=== PATIENT | female | born 1990 | race Caucasian/White ===

== ENCOUNTER 2020-03-31 10:14 | Emergency (ER) | payer OTHER, SELFPAY ==
[2020-03-31 12:07] VITALS: BP 116/67; PULSE 76; RESP 18; TEMP 36.6; O2SAT 99; BMI 23.0
--- NOTE | 2020-03-31 13:59 | ED_ITS ---
HPI - General Adult General Chief complaint: Skin/Abscess/Foreign Body Stated complaint: rash History of Present Illness HPI narrative: Patient presents to ED for itchy rash on back and arms for 2 weeks. Patient states no relief with [id number] eucerin cream and bacitracin ointment. patient has pmh of eczema. Patient denies any swelling of lips, shortness of breath, swelling of tongue, burning sensation, fever, or chills. Patient denies having bedbugs. Patient states no one in her home have similar symptoms. Patient also states her kids sleep in the bed and had no symptoms/rash. Related Data Previous Rx's Medication Instructions Recorded diphenhydramine HCl [Benadryl] 25 mg PO TID PRN #30 cap 03/31/20 famotidine [Pepcid] 20 mg PO BID #20 tab 03/31/20 hydrocortisone 1 appl TOPICAL BID PRN 14 Days #30 03/31/20 g prednisone 40 mg PO DAILY #10 tab 03/31/20 Allergies Allergy/AdvReac Type Severity Reaction Status Date / Time SEAFOOD Allergy Mild ANGIOEDEMA Uncoded 03/31/20 12:06 shellfish Allergy Unknown swelling Uncoded 03/31/20 12:06 Review of Systems Review of Systems: Yes all other systems are reviewed and are negative Constitutional: Constitutional: Reports as per HPI and Reports no additional constitutional complaints Eyes: Eyes: Reports as per HPI and Reports no additional eye complaints ENT: Reports system reviewed and no additional complaints, except as documented and Reports as per HPI Cardiovascular: Cardiovascular: Reports as per HPI and Reports no additional cardiovascular complaints Respiratory: Respiratory: Reports as per HPI and Reports no additional respiratory complaints Gastrointestinal: Gastrointestinal: Reports as per HPI and Reports no additional gastrointestinal complaints Genitourinary: Genitourinary: Reports no additional female genitourinary complaints and Reports as per HPI Musculoskeletal: Musculoskeletal: Reports no additional musculoskeletal c omplaints and Reports as per HPI Comments: Itchy rash on back, and arms Neurologic: Reports system reviewed and no additional complaints, except as documented and Reports as per HPI Psychiatric: Psychiatric: Reports no additional psychiatric complaints and Reports as per HPI [facility] Past Medical History Medical History (Updated 03/31/20 @ 14:18 by JOSLYN Aj) Patient denies medical problems Social History Social History Smoked in Last 30 Days: No Use of substances other than those prescribed or required for medical reasons: No Advance Directives: No Advance Directives Information Provided: No Physical Exam Vital Signs: Vital Signs: Last Vital Signs Temp 97.8 F 03/31/20 12:07 Pulse 76 03/31/20 12:07 Resp 18 03/31/20 12:07 BP 116/67 03/31/20 12:07 Pulse Ox 99 03/31/20 12:07 Body Mass Index 23.0 Const: General: cooperative, healthy appearing, comfortable, no acute distress, well developed, alert, awake and Physically active Orientation/consciousness: patient oriented x3 HENMT: Other: Lips, tongue, and uvula are not swollen. Patient speaking in full sentences and not using accessory muscles. Uvula is midline Head: Yes normal to inspection, Yes No palpable skull fracture present, Yes normocephalic, No atraumatic, No abrasion, No Sage's sign, No contusion, No cranial bruits, No hematoma, No laceration, No occipital foramen tenderness, No palpable skull fracture, No raccoon eyes, No scalp tenderness, No Temporal artery tenderness present and No periorbital ecchymosis Eyes: General: appearance normal, both eyes and all related structures Neck: Neck: Yes normal visual inspection, Yes full ROM, Yes no lymphadenopathy, Yes no meningeal signs, Yes trachea midline, Yes supple and No tender Chest: Chest palpation & inspection: normal inspection of the chest and normal palpation of entire chest wall Resp: Effort & Inspection: normal respiratory effort and able to speak in complete sentences Auscultation: clear to auscultation bilaterally Cardio: Jugular venous distension: no JVD Heart sounds: S1 normal heart sound present and S2 normal heart sound present GI: Inspection: Yes normal to inspection and No abdominal wall ecchymosis Palpation (GI): Soft to palpation, not firm, nontender, no guarding and not rigid : General: Yes CVA tenderness and Yes no CVA tenderness Back/Spine/Pelvis: Back: no CVA tenderness and CVA tenderness Skin: Other: Back/bilateral arms positive for red dermatitis type rash with excoriation. Negative for any papules. Negative for vesicles or blisters to indicate shingles. Negative for warmth to indicate cellulitis. Negative for little bites on hand enhance to indicate scabies. Neuro: General: patient oriented x3, no meningeal signs and CN's II-XI intact bilaterally Cranial nerves: Yes CN's II-XII intact bilaterally Extrem: General: Yes normal to inspection and Yes full ROM Psych: Appearance: grossly normal, well kempt and not disheveled Course Course Course Narrative: History physical exam indicate dermatitis/eczema Reevaluation(s) Reevaluation #1: Patient will be discharged with Benadryl, Pepcid, prednisone, and hydrocortisone cream. Patient informed to use Benadryl, Pepcid, prednisone 1st and then use hydrocortisone cream. Patient informed not to use hydrocortisone on face. Time: 14:13 Medical Decision Making MDM Narrative Medical decision making narrative: Eczema/dermatitis Discharge Plan Discharge Clinical Impression: Dermatitis, Eczema Patient Disposition: Home, Self-Care Instructions: Eczema (ED), Dermatitis (ED) Additional Instructions: Return to the ED immediately for swelling of lips, swelling of tongue, shortness of breath, chest pain, fever, chills, worsening rash, or any other concerning symptoms. Prescriptions: New prednisone 20 mg tablet 40 mg PO DAILY Qty: 10 RF: 0 famotidine [Pepcid] 20 mg tablet 20 mg PO BID Qty: 20 RF: 0 diphenhydramine HCl [Benadryl] 25 mg capsule 25 mg PO TID PRN (Reason: itching) Qty: 30 RF: 0 hydrocortisone 2.5 % cream 1 appl topical BID PRN (Reason: itching) 14 Days Qty: 30 RF: 0 Referrals: Matteo Jurado MD [Physician] - 2 days (Rash. History and physical exam indicate eczema. needs follow-up.) Interventions: ED Discharge Assessment Last Done: 03/31/20 14:31 Discharge Date/Time: 03/31/20 14:31 Print Language: Indonesian
== END 2020-03-31 14:31 | disposition home or self-care (01) ==
PROVIDERS: Emergency Provider Emergency Medicine; PCP Internal Medicine
DX: L30.9 Dermatitis, unspecified (principal); R21 Rash and other nonspecific skin eruption
CPT/HCPCS: 99283

== ENCOUNTER 2020-11-23 16:12 | Outpatient (REF) | payer OTHER, SELFPAY ==
[2020-11-23 16:26] LABS: MANUAL DIFF FLAG NO
[2020-11-23 16:47] LABS: Basophils Percent Auto 0.4 % (0-2); Eosinophils Absolute Auto 0.2 X10*3/uL (0.0-0.4); Eosinophils Percent Auto 1.9 % (0-4); Hematocrit 36.3 % (37-47); Hemoglobin 12.8 g/dl (12.0-16.0); Imm Gran Abs Auto 0.04 X10*3/uL (0.00-0.03); Imm Gran Pct Auto 0.4 % (0.0-0.4); Lymphocytes Absolute Auto 1.4 X10*3/uL (1.2-4.9); Lymphocytes Percent Auto 14.6 % (20-40); Mean Corpuscular HGB Conc 35.3 g/dl (31.0-35.0); Mean Corpuscular Hemoglobin 31.9 pg (27.0-33.0); Mean Corpuscular Volume 90.5 fL (80-98); Mean Platelet Volume 10.1 fL (9.4-12.3); Monocytes Absolute Auto 0.5 X10*3/uL (0.1-1.2); Monocytes Percent Auto 5.1 % (2-11); Neutrophils Absolute Auto 7.4 X10*3/uL (2.0-8.3); Neutrophils Percent Auto 77.6 % (45-73); Platelet Count 243 X10*3/uL (160-400); Red Blood Count 4.01 X10*6/uL (4.20-5.50); Red Cell Distribution Width 11.7 % (11.0-16.0); White Blood Count 9.5 X10*3/uL (4.8-10.8)
[2020-11-23 17:04] LABS: Alanine Aminotransferase 21 U/L (0-31); Albumin Level 4.5 g/dL (3.5-5.0); Alkaline Phosphatase 67 U/L (39-117); Anion Gap 12 (12-20); Aspartate Amino Transferase 20 U/L (5-31); Bilirubin Total 0.4 mg/dL (0.0-1.0); Blood Urea Nitrogen 12 mg/dL (9-16); Calcium 9.6 mg/dL (8.4-10.2); Carbon Dioxide 28 mmol/L (22-29); Chloride 104 mmol/L (96-108); Cholesterol 170 mg/dL; Estimated Glomerular Filt Rate > 60; Glucose Random 84 mg/dL (60-115); HDL Cholesterol 48 mg/dL; LDL Cholesterol Calculated 102 mg/dl; Potassium 4.2 mmol/L (3.3-5.1); Sodium 140 mmol/L (135-145); Total Protein 7.6 g/dL (6.5-8.0); Triglycerides 103 mg/dL
[2020-11-23 17:25] LABS: Thyroid Stimulating Hormone 1.22 uIU/mL (0.32-4.0)
== END 2020-11-23 16:13 | disposition home or self-care (01) ==
LOC: HO.LAB 16:12
PROVIDERS: PCP Internal Medicine; Visit Provider Internal Medicine
DX: Z00.00 Encounter for general adult medical examination without abnormal findings (principal); G56.01 Carpal tunnel syndrome, right upper limb; Z11.3 Encounter for screening for infections with a predominantly sexual mode of transmission; Z12.4 Encounter for screening for malignant neoplasm of cervix
CPT/HCPCS: 36415; 80053; 80061; 84443; 85025

== ENCOUNTER 2021-11-23 13:31 | Outpatient (REF) | payer OTHER, SELFPAY ==
[2021-11-23 14:19] LABS: MANUAL DIFF FLAG NO
[2021-11-23 15:22] LABS: Basophils Absolute Auto 0.1 X10*3/uL (0.0-0.2); Basophils Percent Auto 0.7 % (0-2); Eosinophils Absolute Auto 0.2 X10*3/uL (0.0-0.4); Eosinophils Percent Auto 1.8 % (0-4); Hematocrit 37.7 % (37.0-47.0); Hemoglobin 12.9 g/dl (12.0-16.0); Imm Gran Abs Auto 0.05 X10*3/uL (0.00-0.03); Imm Gran Pct Auto 0.6 % (0.0-0.4); Lymphocytes Absolute Auto 1.4 X10*3/uL (1.2-4.9); Lymphocytes Percent Auto 16.5 % (20-40); Mean Corpuscular HGB Conc 34.2 g/dl (31.0-35.0); Mean Corpuscular Hemoglobin 31.1 pg (27.0-33.0); Mean Corpuscular Volume 90.8 fL (80.0-98.0); Mean Platelet Volume 10.7 fL (9.4-12.3); Monocytes Absolute Auto 0.4 X10*3/uL (0.1-1.2); Neutrophils Absolute Auto 6.6 x10*3/uL (2.0-8.3); Neutrophils Percent Auto 76.4 % (45-73); Platelet Count 278 X10*3/uL (160-400); Red Blood Count 4.15 X10*6/uL (4.20-5.50); White Blood Count 8.7 X10*3/uL (4.8-10.8)
[2021-11-23 15:37] LABS: Alanine Aminotransferase 21 U/L (0-31); Albumin Level 4.5 g/dL (3.5-5.0); Alkaline Phosphatase 59 U/L (39-117); Anion Gap 16 (12-20); Aspartate Amino Transferase 18 U/L (5-31); Bilirubin Total 0.7 mg/dL (0.0-1.0); Blood Urea Nitrogen 13 mg/dL (9-16); Calcium 9.4 mg/dL (8.4-10.2); Carbon Dioxide 25 mmol/L (22-29); Chloride 103 mmol/L (96-108); Estimated Glomerular Filt Rate > 60; Glucose Random 112 mg/dL (60-115); Potassium 4.1 mmol/L (3.3-5.1); Sodium 140 mmol/L (135-145); Total Protein 7.7 g/dL (6.5-8.0)
== END 2021-11-23 13:32 | disposition home or self-care (01) ==
LOC: HO.LAB 13:31
PROVIDERS: PCP Internal Medicine; Visit Provider Internal Medicine
DX: Z00.00 Encounter for general adult medical examination without abnormal findings (principal); I83.813 Varicose veins of bilateral lower extremities with pain; Z13.31 Encounter for screening for depression
CPT/HCPCS: 36415; 80053; 85025

== ENCOUNTER → 2022-02-01 11:21 | Outpatient (BNVA) | payer OTHER, SELFPAY | PROVIDERS: PCP Internal Medicine; Visit Provider Surgery Vascular Surgery | DX: I83.11 Varicose veins of right lower extremity with inflammation (principal) | CPT/HCPCS: 99202 ==

== ENCOUNTER 2022-02-09 10:18 | Outpatient (REF) | payer OTHER, SELFPAY ==
--- NOTE | ~2022-02-09 | US_ITS ---
EXAMINATION: US LOWER EXTREMITY VENOUS (REFLUX EXAM), BILATERAL CLINICAL INDICATION: Chronic venous insufficiency with lower extremity varicose veins COMPARISON: None. TECHNIQUE: Color flow triplex imaging and compression Doppler was performed to evaluate both the deep and the superficial systems bilaterally. To evaluate the superficial system, the examination was performed in the upright position. Color-flow Doppler ultrasound and compression ultrasound were utilized. In addition, maneuvers were utilized to demonstrate reflux. FINDINGS: 1. DEEP VENOUS ULTRASOUND OF THE RIGHT LOWER EXTREMITY: Common Femoral Vein: Compressible, normal respiratory variation and augmented flow. Femoral Vein: Compressible, normal color flow and augmentation. Popliteal Vein: Compressible, normal augmentation. Deep Reflux: There is no evidence of reflux in the deep system in either the common femoral vein or the popliteal vein. There is no evidence of a Brito's cyst. 2. SUPERFICIAL ULTRASOUND WITH DOPPLER OF RIGHT LOWER EXTREMITY: GREAT SAPHENOUS VEIN: Saphenofemoral Junction: 0.5 cm; Reflux: 0 ms Proximal Thigh: 0.3 cm; Reflux: 0 ms Mid Thigh: 0.3 cm; Reflux: 0 ms Above Knee: 0.2 cm; Reflux: 0 ms At Knee: 0.2 cm; Reflux: 0 ms Below Knee: 0.2 cm; Reflux: 0 ms Mid Calf: 0.1 cm; Reflux: 0 ms Ankle: 0.2 cm; Reflux: 0 ms DUPLICATED MEDIAL GREAT SAPHENOUS VEIN: Diameter: 0.2 cm Reflux: None DUPLICATED LATERAL GREAT SAPHENOUS VEIN: Diameter: None Imaged Reflux: NA SMALL SAPHENOUS VEIN: Proximal: 0.3 cm; Reflux: 0 ms Distal: 0.2 cm; Reflux: 0 ms VEIN OF GIACOMINI: None Imaged. PERFORATORS: Location: None Imaged Size: NA Reflux: NA VARICOSITIES: Location: None significant Size: NA Reflux: NA 3. DEEP VENOUS ULTRASOUND OF THE LEFT LOWER EXTREMITY: Common Femoral Vein: Compressible, normal respiratory variation and augmented flow. Femoral Vein: Compressible, normal color flow and augmentation. Popliteal Vein: Compressible, normal augmentation. Deep Reflux: There is no evidence of reflux in the deep system in either the common femoral vein or the popliteal vein. There is no evidence of a Brito's cyst. 4. SUPERFICIAL ULTRASOUND WITH DOPPLER OF LEFT LOWER EXTREMITY: GREAT SAPHENOUS VEIN: Saphenofemoral Junction: 0.7 cm; Reflux: 0 ms Proximal Thigh: 0.4 cm; Reflux: 0 ms Mid Thigh: 0.2 cm; Reflux: 0 ms Above Knee: 0.2 cm; Reflux: 0 ms At Knee: 0.3 cm; Reflux: 0 ms Below Knee: 0.2 cm; Reflux: 0 ms Mid Calf: 0.2 cm; Reflux: 0 ms Ankle: 0.2 cm; Reflux: 0 ms DUPLICATED MEDIAL GREAT SAPHENOUS VEIN: Diameter: None Imaged Reflux: NA DUPLICATED LATERAL GREAT SAPHENOUS VEIN: Diameter: None Imaged Reflux: NA SMALL SAPHENOUS VEIN: Proximal: 0.2 cm; Reflux: 0 ms Distal: 0.1 cm; Reflux: 0 ms VEIN OF GIACOMINI: None Imaged. PERFORATORS: Location: None Imaged Size: NA Reflux: NA VARICOSITIES: Location: None significant Size: NA Reflux: NA US/US venous duplex LE BI IMPRESSION: Right: No significant venous insufficiency or reflux in the great saphenous vein or small saphenous vein Left: No significant venous insufficiency or reflux in the great saphenous vein or small saphenous vein
== END 2022-02-09 10:19 | disposition home or self-care (01) ==
LOC: HO.US 10:18
PROVIDERS: PCP Internal Medicine; Visit Provider Surgery Vascular Surgery
DX: I83.893 Varicose veins of bilateral lower extremities with other complications (principal)
CPT/HCPCS: 93970

== ENCOUNTER → 2022-03-22 11:13 | Outpatient (BNVA) | payer OTHER, SELFPAY | PROVIDERS: PCP Internal Medicine; Visit Provider Surgery Vascular Surgery | DX: I83.11 Varicose veins of right lower extremity with inflammation (principal) | CPT/HCPCS: 99212 ==

== ENCOUNTER 2022-08-17 10:31 | Outpatient (AMB) | payer OTHER, SELFPAY ==
--- NOTE | 2022-08-17 10:56 | MHC.OFFWIV ---
Intake Vital Signs 08/17/22 10:57 Height 5 ft 3 in BP 118/74 Blood Pressure Location Rt brachial Position Sitting Pulse 87 Pulse Source Pulse Oximeter Temp 97.8 F Temp Source Temporal Artery Scan Pulse Oximetry (%) 98 Intake Visit Reasons: EP fall, LT foot injury (lobby) Intake Note: pt is here for lt foot pain, fell down stairs and hit foot Patient Tobacco Use Status: Never used Tobacco Allergies SEAFOOD Allergy (Mild, Uncoded 08/17/22 10:57) ANGIOEDEMA shellfish Allergy (Unknown, Uncoded 08/17/22 10:57) swelling Do you need a note to return to daycare/school/sports/work: Yes HPI HPI Comments History of Present Illness Details 1100 This is a 31-year-old female presenting to the clinic for a sick visit, patient reporting left foot/toe pain status post trip and fall few days ago down the stairs, patient reports when she fell she did not hit her head, no loss of consciousness, not on blood thinners. She reports that her left foot/toes hit the wall in since then has been having pain worse with weight-bearing, ambulation better at rest. Denies numbness, tingling, headache, vision changes, dizziness, weakness, altered mental status, lethargy, seizure-like activity, chest pain, shortness of breath. No other injury sustained in fall. Physical exam significant for 2+ dorsalis pedis, anterior tibialis, posterior tibialis pulses equal bilateral. No foot drop. Normal sensation distally. There does appear to be some swelling to the left 2nd -4th toes with full range of motion pain-free. Normal right foot. Normal capillary refill less than 2 seconds equal bilateral. Patient ambulatory. Likely sprain versus strain will rule out fracture dislocation. No signs of threatened lumbar neurovascular compromise. Plan at this time x-ray, discharged home with orthopedic follow-up. Will give her a walking shoe. Educated patient on diagnosis and treatment plan, answered all question, patient verbalizes understanding. At this time patient will be discharged home, advised to return with new or worsening symptoms. Educated on worrisome signs and symptoms and when to return. At this time I feel comfortable discharge home. [facility] Medical History Patient denies medical problems Family History Mother Hypertension Social History Alcohol intake: never Patient Tobacco Use Status: Never used Tobacco Review of Systems Const Details: Constitutional : No Weight loss, No Fever, No Chills, No Fatigue, No Malaise ENT/Mouth : No sore throat, No Rhinorrhea Eyes: No Eye Pain, No Swelling, No Redness Cardiovascular : No Chest Pain, No SOB, No Dyspnea on Exertion, No Orthopnea, No Edema, No Palpitations Respiratory : No Cough, No Sputum, No Wheezing Gastrointestinal : No Nausea, No Vomiting, No Diarrhea, No Constipation, No abdominal Pain, No Hematochezia, No Melena Genitourinary : No Dysuria, No Urinary Frequency, No Hematuria, Musculoskeletal : No joint pain, No Myalgias, + Joint Swelling Skin : No Skin Lesions, No rash Neuro : No Weakness, No Numbness, No Dizziness, No Headache Psych : No Anxiety/Panic, No Depression All other systems reviewed and are negative All systems reviewed & are unremarkable except as noted in HPI and below Physical Exam Vital Signs: Last Vital Signs Temp 97.8 F 08/17/22 10:57 Pulse 87 08/17/22 10:57 BP 118/74 08/17/22 10:57 Pulse Ox 98 08/17/22 10:57 vss Appearance: Alert.? Oriented X3.? No acute distress.? Head: Normocephalic, atraumatic, no step-offs or deformities Eyes: Pupils equal, round and reactive to light.? CVS: Normal heart rate and rhythm.? Pulses normal.? Respiratory: No respiratory distress.? Breath sounds normal.? Abdomen: Soft and nontender.? Skin: Skin warm and dry.? Normal skin color.? Normal skin turgor.? Extremities: No lower extremity edema.? No calf ttp. 5/5 strength to bilateral upper and lower extremities. 2+ dorsalis pedis, anterior tibialis, posterior tibialis pulses equal bilateral. No foot drop. Normal sensation distally. There does appear to be some swelling to the left 2nd -4th toes with full range of motion pain-free. Normal right foot. Normal capillary refill less than 2 seconds equal bilateral. Patient ambulatory. Neuro: Oriented X 3.? No motor deficit.? No sensory deficit. CN 2-12 intact Assessment & Plan Assessment & Plan (1) Toe pain, left: Code(s): M79.675 - Pain in left toe(s) (2) Foot pain: Code(s): M79.673 - Pain in unspecified foot (3) Fall: Code(s): W19.XXXA - Unspecified fall, initial encounter Plan Take your medications as prescribed. If you were prescribed antibiotics today, it is important that you take your medication to their entirety, do not skip any doses, do not finish them early. Follow-up with your primary care provider this week. Return to the emergency department with new or worsening symptoms. Such as fevers, chills, chest pain, shortness of breath, nausea, vomiting, dizziness, headache, vision changes, lethargy In case of emergency call 911 Orders: Orders XR foot LT 2V Today M79.672 - Pain in left foot Referrals Orthopedics Referral M79.675 - Pain in left toe(s) Coding Level of Care Code Est Pt Level 3 (96521) Diagnoses Toe pain, left M79.675 Foot pain M79.673 Fall W19.XXXA
[2022-08-17 10:57] VITALS: BP 118/74; PULSE 87; TEMP 36.6; O2SAT 98
== END 2022-08-17 11:54 | disposition home or self-care (01) ==
PROVIDERS: PCP Internal Medicine; Visit Provider Physician Assistant
DX: M79.675 Pain in left toe(s) (principal); M79.673 Pain in unspecified foot; W19.XXXA Unspecified fall, initial encounter
CPT/HCPCS: 99213

== ENCOUNTER 2022-08-17 11:14 | Outpatient (REF) | payer OTHER, SELFPAY ==
--- NOTE | ~2022-08-17 | XR_ITS ---
EXAMINATION: XR FOOT, LEFT CLINICAL INFORMATION: Left foot pain COMPARISON: None available. TECHNIQUE: AP, lateral, and oblique views of the left foot. FINDINGS: Minimally displaced oblique fractures involving medial and lateral cortices of the fourth proximal phalanx are seen. No intra-articular extension. Alignment and articulations are maintained. Mild calcaneal spurring. XR/XR foot LT min 3V IMPRESSION: Fractured fourth toe
== END 2022-08-17 11:15 | disposition home or self-care (01) ==
LOC: HO.HMGCX 11:14
PROVIDERS: PCP Internal Medicine; Visit Provider Physician Assistant
DX: M79.672 Pain in left foot (principal)
CPT/HCPCS: 73630

== ENCOUNTER 2022-11-23 15:02 | Outpatient (REF) | payer OTHER, SELFPAY ==
[2022-11-23 18:01] LABS: CT PCR NOT DETECTED (Not Detect.); NG PCR NOT DETECTED (Not Detect.)
[2022-11-25 07:40] LABS: Syphilis Screen Nonreactive (Nonreactive)
[2022-11-25 07:45] LABS: HBS Num1 42.35 mIU/mL (0-7.99); HBc Num1 0.12 S/CO (0.00-0.79); HBsAGNum1 0.75 S/CO (0.00-0.99); HIV AB/AG Nonreactive (Nonreactive); Hepatitis A Antibody IgM 0.22 Index (0-0.79); Hepatitis B Core Antibody Nonreactive (Nonreactive); Hepatitis B Surface Antigen Negative (Negative); ~HepC Num1 0.14 S/CO (0.00-0.79); ~Hepatitis A Antibody IgM Nonreactive (Nonreactive); ~Hepatitis B Surface Antibody REACTIVE (Nonreactive); ~Hepatitis C Antibody Nonreactive (Nonreactive)
== END 2022-11-23 15:03 | disposition home or self-care (01) ==
LOC: HO.LAB 15:02
PROVIDERS: PCP Internal Medicine; Visit Provider Internal Medicine
DX: Z00.00 Encounter for general adult medical examination without abnormal findings (principal); F32.9 Major depressive disorder, single episode, unspecified; F41.0 Panic disorder [episodic paroxysmal anxiety]; Z11.3 Encounter for screening for infections with a predominantly sexual mode of transmission
CPT/HCPCS: 0353U; 86704; 86706; 86709; 86780; 86803; 87340; 87389

== ENCOUNTER 2023-01-26 12:49 | Outpatient (AMB) | payer OTHER, SELFPAY ==
[2023-01-26 12:57] VITALS: BP 100/62; BMI 31.9
--- NOTE | 2023-01-26 12:57 | A.OFFVIS_ITS ---
Intake Vital Signs 01/26/23 12:57 Height 5 ft 3 in Weight 180 lb BMI 31.9 BP 100/62 Intake Visit Reasons: tubal consult Bean Snapper Required: No Allergies SEAFOOD Allergy (Mild, Uncoded 01/26/23 13:00) ANGIOEDEMA shellfish Allergy (Unknown, Uncoded 01/26/23 13:00) swelling Post menopausal: No HPI HPI Comments History of Present Illness Details Presenting to discuss different options of control including tubal sterilization. The patient has ParaGard IUD inserted few years ago [facility] Medical History Patient denies medical problems Family History Mother Hypertension Breast cancer Maternal Grandmother Breast cancer Social History Alcohol intake: never Patient Tobacco Use Status: Never used Tobacco Female Reproductive History Menstrual Duration of menses: other Total pregnancies: 3 Full term: 3 Number of Living Children: 3 Review of Systems Const All systems reviewed & are unremarkable except as noted in HPI and below Reports as per HPI and Reports no additional complaints GI Reports no additional complaints Reports no additional complaints Physical Exam Vital Signs: Last Vital Signs BP 100/62 01/26/23 12:57 BMI result Body Mass Index 31.9 Assessment & Plan Assessment & Plan (1) Family planning: Code(s): Z30.09 - Encounter for other general counseling and advice on contraception Plan: Discussed with the patient the different options of control including control pills/Nuvaring, DMPA, different types of IUD ?s ( Cu vs Progesterone IUD). All the pros, cons, risks and benefits of each were discussed with the patient. The patient decided to stay with Paraguard IUD, I was inserted few years ago, all questions answered, the patient verbalized understanding Coding Level of Care Code New Pt Level 3 (09658) Diagnoses Family planning Z30.09
== END 2023-01-26 13:23 | disposition home or self-care (01) ==
LOC: HO.HWS 12:49
PROVIDERS: PCP Internal Medicine; Visit Provider Obstetrics & Gynecology
DX: Z30.09 Encounter for other general counseling and advice on contraception (principal)
CPT/HCPCS: 99203

== ENCOUNTER → 2023-01-26 12:49 | Outpatient (BNVA) | payer OTHER, SELFPAY | PROVIDERS: PCP Internal Medicine; Visit Provider Obstetrics & Gynecology | DX: Z30.09 Encounter for other general counseling and advice on contraception (principal) | CPT/HCPCS: 99202 ==

== ENCOUNTER 2023-03-29 08:44 | Outpatient (REF) | payer OTHER, SELFPAY ==
[2023-04-01 03:59] LABS: HPV mRNA E6/E7 rflx Not Detected (Not Detected)
== END 2023-03-29 08:45 | disposition home or self-care (01) ==
LOC: HO.LNP 08:44
PROVIDERS: PCP Internal Medicine; Visit Provider Obstetrics & Gynecology
DX: Z01.419 Encounter for gynecological examination (general) (routine) without abnormal findings (principal); T83.32XA Displacement of intrauterine contraceptive device, initial encounter; Z11.3 Encounter for screening for infections with a predominantly sexual mode of transmission; Z32.02 Encounter for pregnancy test, result negative
CPT/HCPCS: 81025; 87624; 88142; 99395

== ENCOUNTER 2023-03-29 08:44 | Outpatient (AMB) | payer OTHER, SELFPAY ==
--- NOTE | 2023-03-29 08:47 | MHC.OFFVIS ---
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 The patient states that she has an IUD inserted around 6 years ago, and is requesting STD screen Last Pap/HPV was many years ago [facility] Medical History Patient denies medical problems Family History Mother Hypertension Breast cancer Maternal Grandmother Breast cancer Social History Alcohol intake: never Patient Tobacco Use Status: Never used Tobacco Female Reproductive History Menstrual Date of last menstrual period: 03/22/23 control method: progestin IUCD Total pregnancies: 3 Full term: 3 Number of Living Children: 3 Review of Systems Const All systems reviewed & are unremarkable except as noted in HPI and below Card Reports as per HPI Resp Reports as per HPI GI Reports as per HPI and Reports no additional complaints Reports as per HPI Physical Exam Vital Signs: Last Vital Signs BP 114/70 03/29/23 08:48 BMI result Body Mass Index 31.6 Const General: cooperative, healthy appearing and comfortable Chest Chest palpation & inspection: normal inspection of the chest and normal palpation of entire chest wall Breast/axilla inspection: normal inspection of the breasts and normal inspection of the axillae Breast/axilla palpation: normal palpation of the breasts, normal palpation of the axillae and no axillary lymphadenopathy Resp Effort & Inspection: normal respiratory effort Auscultation: clear to auscultation bilaterally Percussion: percussion normal Cardio Palpation: normal PMI Rate: regular rate Rhythm: regular rhythm Heart sounds: no murmurs and no rubs Peripheral pulses: Peripheral pulses 2+ throughout GI Inspection: Yes normal to inspection Palpation (GI): Soft to palpation, nontender, no guarding, not rigid and No hepatosplenomegaly present Percussion: Yes normal to percussion Auscultation: normal bowel sounds Rectal Exam - Female: deferred General: Yes bladder normal to palpation External Female Exam: No lesion Speculum Exam - Vagina: normal appearance of the vagina, normal palpation, normal vaginal discharge and not erythematous Speculum Exam - Cervix: normal appearance of the cervix, normal palpation and Other cervical findings present (No IUD string visualized) Bimanual exam- vagina & uterus: normal bimanual exam, normal palpation, uterine size normal, bladder normal to palpation, consistency normal and normal palpation Bimanual Exam- Adnexa, other: normal adnexae, no masses and no tenderness Assessment & Plan Assessment & Plan (1) Well woman exam: Code(s): Z01.419 - Encounter for gynecological examination (general) (routine) without abnormal findings Plan: Cotesting done. Counseled the patient about the recommended dietary allowance of 1000 mg of Calcium & 600 IU of vitamin D. The patient was instructed to perform monthly self-breast exams and to schedule an annual exam in a year; All questions answered and the patient verbalized understanding. Instructed the patient to schedule annual exam in a year (2) Screen for STD (sexually transmitted disease): Code(s): Z11.3 - Encounter for screening for infections with a predominantly sexual mode of transmission Plan: STD screening tests done includes: BV panel for trichomonas, GC/CT will send patient for serology std screening for HIV, RPR, Hep b s Ag, HepC Ab. Instructions given the patient to schedule a follow-up appointment for repeat serology screen in 6 months for possible false negatives. (3) IUD strings lost: Code(s): T83.32XA - Displacement of intrauterine contraceptive device, initial encounter Plan: UPT done in the office was negative. Will order pelvic ultrasound. Instructions given the patient to schedule a 2 week ultrasound follow-up appointment Coding Level of Care Code Est Pt Prev Care 18-39y([id number]) Diagnoses Well woman exam Z01.419 Screen for STD (sexually transmitted disease) Z11.3 IUD strings lost T83.32XA
[2023-03-29 08:48] VITALS: BP 114/70; BMI 31.6
== END 2023-03-29 09:20 | disposition home or self-care (01) ==
LOC: HO.HWS 08:44
PROVIDERS: PCP Internal Medicine; Visit Provider Obstetrics & Gynecology
DX: Z01.419 Encounter for gynecological examination (general) (routine) without abnormal findings (principal); Z11.3 Encounter for screening for infections with a predominantly sexual mode of transmission; T83.32XA Displacement of intrauterine contraceptive device, initial encounter; Z32.02 Encounter for pregnancy test, result negative
CPT/HCPCS: 99395

== ENCOUNTER 2023-03-29 09:26 | Outpatient (REF) | payer OTHER, SELFPAY ==
[2023-03-29 10:58] LABS: Syphilis Screen Nonreactive (Nonreactive)
[2023-03-29 10:59] LABS: HBsAGNum1 0.54 S/CO (0.00-0.99); HIV AB/AG Nonreactive (Nonreactive); HIV Num 1 0.08 S/CO (0.00-0.99); Hepatitis B Surface Antigen Negative (Negative); ~HepC Num1 0.37 S/CO (0.00-0.79); ~Hepatitis C Antibody Nonreactive (Nonreactive)
[2023-03-29 12:59] LABS: CT PCR NOT DETECTED (Not Detect.); NG PCR NOT DETECTED (Not Detect.)
[2023-03-30 11:34] LABS: BV Int Neg Control Negative (Negative); BV Int Pos Control Positive (Positive)
== END 2023-03-29 09:27 | disposition home or self-care (01) ==
LOC: HO.LAB 09:26
PROVIDERS: PCP Internal Medicine; Visit Provider Obstetrics & Gynecology
DX: Z01.419 Encounter for gynecological examination (general) (routine) without abnormal findings (principal); Z20.2 Contact with and (suspected) exposure to infections with a predominantly sexual mode of transmission
CPT/HCPCS: 0353U; 36415; 86780; 86803; 87340; 87389; 87480; 87510; 87660

== ENCOUNTER 2023-04-11 14:24 | Outpatient (REF) | payer OTHER, SELFPAY ==
[2023-04-11 16:48] LABS: Alanine Aminotransferase 21 U/L (0-31); Albumin Level 4.2 g/dL (3.5-5.0); Alkaline Phosphatase 53 U/L (39-117); Anion Gap 10 (12-20); Aspartate Amino Transferase 18 U/L (5-31); Bilirubin Total 0.5 mg/dL (0.0-1.0); Blood Urea Nitrogen 14 mg/dL (9-16); Calcium 9.1 mg/dL (8.4-10.2); Carbon Dioxide 28 mmol/L (22-29); Chloride 106 mmol/L (96-108); Estimated Glomerular Filt Rate > 60; Glucose Random 82 mg/dL (60-115); Sodium 140 mmol/L (135-145); Total Protein 7.6 g/dL (6.5-8.0)
== END 2023-04-11 14:25 | disposition home or self-care (01) ==
LOC: HO.LAB 14:24
PROVIDERS: PCP Internal Medicine; Visit Provider Internal Medicine
DX: B35.3 Tinea pedis (principal); L03.119 Cellulitis of unspecified part of limb
CPT/HCPCS: 36415; 80053

== ENCOUNTER 2023-04-17 10:58 | Outpatient (REF) | payer OTHER, SELFPAY ==
--- NOTE | ~2023-04-17 | US_ITS ---
EXAMINATION: US PELVIS CLINICAL INFORMATION: Displacement of contraceptive device COMPARISON: None available. TECHNIQUE: Ultrasound of the pelvis is performed using both transabdominal and transvaginal transducers along with Doppler. Transvaginal imaging is performed due to inadequate visualization transabdominally. FINDINGS: Uterus: The uterus is anteverted and measures 10.0 x 5.0 x 5.5 cm in sagittal times AP times transverse dimension. The double wall endometrial thickness is 0.3 cm. The uterus is smooth in contour and has normal myometrial echogenicity. No visible fibroid. There is an IUD is positioned low in the lower uterine segment. Adnexa: Both ovaries are visualized. There is normal color flow to the adnexa. There is no ovarian torsion. There is no pelvic ascites or fluid collection. Right ovary measures 2.9 x 1.5 x 2.3 cm and volume 5.1 mL. It appears unremarkable. Left ovary measures 3.6 x 1.7 x 2.5 cm and volume 7.9 mL. US/US pelvic and transvaginal IMPRESSION: 1. Low-lying IUD in the lower uterine segment. 2. The ovaries are unremarkable. 3. There is no free fluid in the cul-de-sac.
== END 2023-04-17 10:59 | disposition home or self-care (01) ==
LOC: HO.US 10:58
PROVIDERS: PCP Internal Medicine; Visit Provider Obstetrics & Gynecology
DX: T83.32XA Displacement of intrauterine contraceptive device, initial encounter (principal)
CPT/HCPCS: 76830; 76856

== ENCOUNTER 2023-04-27 08:02 | Outpatient (AMB) | payer OTHER, SELFPAY ==
--- NOTE | 2023-04-27 08:26 | A.OFFVIS_ITS ---
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 The patient had positive BV is on metronidazole Pelvic Ultrasound showed the following: IMPRESSION: 1. Low-lying IUD in the lower uterine s egment. 2. The ovaries are unremarkable. 3. There is no free fluid in the cul-de -sac. COUNTS INCLUDE 234 BEDS AT THE [facility] Medical History Patient denies medical problems Family History Mother Hypertension Breast cancer Maternal Grandmother Breast cancer Social History Alcohol intake: never Patient Tobacco Use Status: Never used Tobacco Female Reproductive History Menstrual Date of last menstrual period: 12/05/19 Total pregnancies: 2 Full term: 2 Review of Systems Card Reports as per HPI and Reports no additional complaints Resp Reports as per HPI and Reports no additional complaints GI Reports as per HPI and Reports no additional complaints Reports as per HPI Physical Exam Vital Signs: Last Vital Signs BP 118/74 04/27/23 08:27 BMI result Body Mass Index 31.6 Const General: cooperative, healthy appearing and comfortable Resp Effort & Inspection: normal respiratory effort Auscultation: clear to auscultation bilaterally Percussion: percussion normal Cardio Palpation: normal PMI Rate: regular rate Rhythm: regular rhythm Heart sounds: no murmurs and no rubs Peripheral pulses: Peripheral pulses 2+ throughout GI Inspection: Yes normal to inspection Palpation (GI): Soft to palpation, nontender, no guarding, not rigid and No hepatosplenomegaly present Percussion: Yes normal to percussion Auscultation: normal bowel sounds Rectal Exam - Female: deferred Assessment & Plan Assessment & Plan (1) IUD strings lost: Code(s): T83.32XA - Displacement of intrauterine contraceptive device, initial encounter Plan: Attempted IUD removal was aborted because the patient could not tolerate the pain. Recommended hysteroscopic IUD removal with Mirena IUD insertion. Discussed with the patient the procedure , all benefits and risks including but not limited to inability to complete the procedure , insufficient endometrial tissue for a complete evaluation of the endometrial cavity , bleeding, infection, possible need for blood transfusion with all its risk ( HIV,syphilis, Hepatitis, anaphylaxis shock, others..), injury to bladder, rectum, possible need for laparoscopy/laparotomy or hysterectomy. The patient verbalized understanding and signed the consent. Instructions given the patient to schedule a 2 week postoperative appointment (2) Family planning: Code(s): Z30.09 - Encounter for other general counseling and advice on contraception Plan: Discussed with the patient the different options of control including control pills/Nuvaring, DMPA, different types of IUD ?s ( cu vs progesterone) , sterilization. All the pros, cons, risks and benefits of each were discussed with the patient. The patient decided to go ahead with Mirena IUD, so a more detailed discussion was carried on including mechanism of action, risks (infection, uterine perforation, failure with ectopic , septic AB, ovarian cyst and pelvic pain, increased breast cancer risk and others) benefits (efficient contraceptive method, others), GC/CG were taken and were negative and the patient is scheduled for hysteroscopic IUD removal with Mirena IUD insertion. Meanwhile instructions given the patient to use a backup method for control since the IUD in the lower uterine segment and is not ineffective contraceptive method because of abnormal location in the lower uterine. All questions answered, the patient verbalized understanding Coding Level of Care Code Est Pt Level 3 (44228) Diagnoses IUD strings lost T83.32XA Family planning Z30.09
[2023-04-27 08:27] VITALS: BP 118/74; BMI 31.6
== END 2023-04-27 08:43 | disposition home or self-care (01) ==
PROVIDERS: PCP Internal Medicine; Visit Provider Obstetrics & Gynecology
DX: T83.32XA Displacement of intrauterine contraceptive device, initial encounter (principal); Z30.09 Encounter for other general counseling and advice on contraception; Z32.02 Encounter for pregnancy test, result negative
CPT/HCPCS: 99213

== ENCOUNTER → 2023-04-27 08:02 | Outpatient (BNVA) | payer OTHER, SELFPAY | PROVIDERS: PCP Internal Medicine; Visit Provider Obstetrics & Gynecology | DX: T83.32XA Displacement of intrauterine contraceptive device, initial encounter (principal); Z30.09 Encounter for other general counseling and advice on contraception | CPT/HCPCS: 81025; 99212 ==

== ENCOUNTER 2023-06-15 10:59 | Outpatient (AMB) | payer OTHER, SELFPAY ==
--- NOTE | 2023-06-15 11:16 | MHC.OFFVIS ---
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: No Information Interpreted: non-clinical & clinical Litigation Manager: Litigation Manager Present Accompanied by: Self / Same As Patient Allergies SEAFOOD Allergy (Mild, Uncoded 06/15/23 11:23) ANGIOEDEMA shellfish Allergy (Unknown, Uncoded 06/15/23 11:23) swelling Is last menstrual period known: Yes Last menstrual period: 12/05/19 Post menopausal: No Patient : No Do you need a note to return to daycare/school/sports/work: Yes (for surgery on monday) HPI Comments Details: Presenting to discuss the procedure hysteroscopic IUD removal and Mirena IUD insertion FORMERLY [facility] Medical History Patient denies medical problems Family History Mother Hypertension Breast cancer Maternal Grandmother Breast cancer Social History Alcohol intake: never Patient Tobacco Use Status: Never used Tobacco Female Reproductive History Menstrual Date of last menstrual period: 12/05/19 Total pregnancies: 2 Full term: 2 Review of Systems Card Reports as per HPI and Reports no additional complaints Resp Reports as per HPI and Reports no additional complaints GI Reports as per HPI and Reports no additional complaints Reports as per HPI Physical Exam Vital Signs: Last Vital Signs BP 116/70 06/15/23 11:22 BMI result Body Mass Index 31.6 Const General: cooperative, healthy appearing and comfortable Resp Effort & Inspection: normal respiratory effort Auscultation: clear to auscultation bilaterally Percussion: percussion normal Cardio Palpation: normal PMI Rate: regular rate Rhythm: regular rhythm Heart sounds: no murmurs and no rubs Peripheral pulses: Peripheral pulses 2+ throughout GI Inspection: Yes normal to inspection Palpation (GI): Soft to palpation, nontender, no guarding, not rigid and No hepatosplenomegaly present Percussion: Yes normal to percussion Auscultation: normal bowel sounds Rectal Exam - Female: deferred Assessment & Plan Assessment & Plan (1) IUD strings lost: Code(s): T83.32XA - Displacement of intrauterine contraceptive device, initial encounter Category: Medical Plan: An attempt for IUD removal in the office was done last visit, but the procedure was aborted because the patient could not tolerate the procedure. Recommended to proceed with hysteroscopic IUD removal. Discussed with the patient the procedure , all benefits and risks including but not limited to inability to complete the procedure , bleeding, infection, possible need for blood transfusion with all its risk ( HIV,syphilis, Hepatitis, anaphylaxis shock, others..), injury to bladder, rectum, possible need for laparoscopy/laparotomy or hysterectomy. The patient verbalized understanding and signed the consent. Instructions given the patient to stay NPO after midnight the day prior to the procedure and to take only the specific medication (s) discussed the morning of the surgical procedure and to schedule a 2 week postoperative appointment (2) Family planning: Code(s): Z30.09 - Encounter for other general counseling and advice on contraception Category: Social Hx Plan: Discussed with the patient the different options of control including control pills/Nuvaring, DMPA, different types of IUD ?s, sterilization. All the pros, cons, risks and benefits of each were discussed with the patient. The patient decided to go ahead with an IUD, so a more detailed discussion was carried on including types (Progesterone, Copper), mechanism of action, risks (infection, uterine perforation, failure with ectopic , septic AB, dysmenorrhea with Paraguard, others) benefits (efficient contraceptive method, hypo menorrhea with Progesterone IUD, others) GC/CG were taken and Mirena IUD insertion will be performed intraoperatively after the hysteroscopic IUD removal. Coding Level of Care Code Est Pt Level 3 (09337) Diagnoses IUD strings lost T83.32XA Family planning Z30.09
[2023-06-15 11:22] VITALS: BP 116/70; BMI 31.6
== END 2023-06-15 12:44 | disposition home or self-care (01) ==
PROVIDERS: PCP Internal Medicine; Visit Provider Obstetrics & Gynecology
DX: T83.32XA Displacement of intrauterine contraceptive device, initial encounter (principal); Z30.09 Encounter for other general counseling and advice on contraception
CPT/HCPCS: 99213

== ENCOUNTER → 2023-06-15 10:59 | Outpatient (BNVA) | payer OTHER, SELFPAY | PROVIDERS: PCP Internal Medicine; Visit Provider Obstetrics & Gynecology | DX: Z30.09 Encounter for other general counseling and advice on contraception (principal); T83.32XA Displacement of intrauterine contraceptive device, initial encounter | CPT/HCPCS: 99212 ==

== ENCOUNTER 2023-06-26 12:04 | Day surgery (SDC) | payer OTHER, SELFPAY ==
[2023-06-22 15:05] VITALS: BMI 31.6
--- NOTE | 2023-06-22 15:56 | HO.ANESPROP2 ---
Documented by User: Janeen Vargas NP 06/22/23 15:57 HPI - Anesthesia Eval Consult details Narrative: 32yo F for Hysteroscopy Removal intrauterine device and Mirena Insertion PMFSH Active Problems Active Problems: All Active Problems IUD strings lost (Acute) Screen for STD (sexually transmitted disease) (Acute) Well woman exam (Acute) Family planning (Acute) Varicose veins of right lower extremity with inflammation (Acute) Past Medical History Medical History Patient denies medical problems Family History Family History Mother Hypertension Breast cancer Maternal Grandmother Breast cancer Social History Social History Alcohol intake: never Patient Tobacco Use Status: Never used Tobacco Second Hand Smoke Exposure: No Use of substances other than those prescribed or required for medical reasons: Yes Substance Use Frequency: Daily Are you DNR?: No Advance Directives: No Advance Directives Information Provided: Yes Advance Directives on File: No Meds Allergies Allergy/AdvReac Type Severity Reaction Status Date / Time shellfish derived Allergy Severe Angioedema Verified 06/22/23 15:03 Home Medications ?Medication ?Instructions ?Recorded ?Confirmed ?Last Taken ?Type copper 380 square mm intrauterine intrauterine 06/15/23 06/27/17 History device (ParaGard T 380A) Exam Height,Weight and Vital Signs: Height 5 ft 3 in Weight 81 kg Assessment and Plan Assessment Anesthesia Assessment: Chart Reviewed Documented by User: Shoshana Waddell MD 06/26/23 14:06 HPI - Anesthesia Eval Consult details Narrative: 32yo F for Hysteroscopy Removal of displaced intrauterine device and Mirena Insertion PMFSH Past Medical History Medical History Patient denies medical problems Family History Family History Mother Hypertension Breast cancer Maternal Grandmother Breast cancer Family history of problems with anesthesia: No Surgical History History of Problems with Anesthesia: No (Never had anesthesia) Social History Social History Alcohol intake: never Patient Tobacco Use Status: Never used Tobacco Second Hand Smoke Exposure: No Use of substances other than those prescribed or required for medical reasons: Yes Substance Use Frequency: Daily Are you DNR?: No Advance Directives: No Advance Directives Information Provided: Yes Advance Directives on File: No Meds Allergies Allergy/AdvReac Type Severity Reaction Status Date / Time shellfish derived Allergy Severe Angioedema Verified 06/22/23 15:03 Home Medications ?Medication ?Instructions ?Recorded ?Confirmed ?Last Taken ?Type copper 380 square mm intrauterine intrauterine 06/15/23 06/27/17 History device (ParaGard T 380A) Exam Height,Weight and Vital Signs: Height 5 ft 3 in Weight 81 kg Vital Signs Temp Pulse Resp BP Pulse Ox O2 Del Method 06/26/23 12:54 98.3 F 75 16 112/68 98 Room Air Pertinent Lab Results Pertinent Lab Results: Lab Results 06/26/23 Range/Units 12:32 Urine Test NEGATIVE (NEGATIVE) Airway Mallampati Class: II TM Dist: >3cm Neck ROM: Full Loose/Missing/Broken Teeth: Yes (Some discomfort of molars. Denies broken, missing or loose teeth) Heart: RRR Lungs: CTAB Assessment and Plan Assessment Anesthesia Assessment: Anesthesia Plan Discussed and Chart Reviewed Final Anesthetic Review Family History of Problems with Anesthesia: No History of Problems with Anesthesia: No (Never had anesthesia) NPO: Yes ASA Class: II Final Preanesthetic Review: No Changes in Pt Med Stat, Meds/Allgs Chart Reviewed, Consent Obtained/Reviewed and Anes Risks/Benef Reviewed Patient Risk: Low Procedure Risk: Low Assessment/Block/Sedation in SS: Assess/Block/Sedation-SS Anesthetic Plan Anesthetic Plan: GA Disposition: Standard PACU
[2023-06-26 12:46] LABS: UPreg QC Valid YES; Urine Pregnancy NEGATIVE (NEGATIVE)
--- NOTE | 2023-06-26 12:46 | MHC.SHP ---
Pre-Procedural Eval Section A - 24 Hr Update-Section A only Date of Service: 06/26/23 The patient is an INPATIENT: No Changes since office visit: No Cold of Flu in the past 2 weeks, No New Medical Problems, No Changes in Medication and No Patient answered all questions The patient has been examined within 24 hours of the surgical procedure. The History & Physical has been completed within 30 days and I have reviewed it.: Yes Section B - Complete if H&P > 30 days Chief Complaint: Displacement of intrauterine contraceptive device, Allergies: Allergies Allergy/AdvReac Type Severity Reaction Status Date / Time shellfish derived Allergy Severe Angioedema Verified 06/22/23 15:03 Plan Diagnosis/Plan: Unchanged I have reviewed the history and physical and performed a pertinent physical examination on my patient. No changes have occurred unless specified. Time Spent With Patient Time: Total time managing care of this patient today ____ minutes.
[2023-06-26 12:54] VITALS: BP 112/68; PULSE 75; RESP 16; TEMP 36.8; O2SAT 98
--- NOTE | 2023-06-26 14:48 | PM.OP ---
Brief Operative Note Date of Service: 06/26/23 Pre-op diagnosis: Abnormal IUD position and lost IUD string Post-op diagnosis: same Procedure: Hysteroscopic IUD removal and Mirena IUD insertion Surgeon: Grupo Prince MD Anesthesia: MAC Was an Bullet Lubricating Machine Operator used for this Procedure?: No Estimated blood loss (mL): 0 Pathology: other (None) Condition: stable Disposition: PACU
--- NOTE | 2023-06-26 14:49 | P.OP_ITS ---
Operative Note Operative Note Date of Service: 06/26/23 Narrative: Preop Diagnosis: Abnormal IUD location, lost string, requesting IUD removal and reinsertion Operation: Diagnostic Hysteroscopic IUD removal, with Mirena IUD insertion Post Op Diagnosis: same. IUD and string in utero QBL: Minimal Anesthesia: MAC Surgeon: Grupo Prince MD Staffing Coordinator: None Complication: None Pathology: None Procedure: The patient was put in the dorsal lithotomy position, scrubbed, and draped in the usual manner. A sterile speculum was inserted in the patient's vagina. The anterior lip of the cervix was grasped with a single tooth tenaculum. The cervix was dilated up to 5 mm, then the scope was inserted in the patient's uterus. Inspection revealed IUD & its string in utero. A hysteroscopic grasper was introduced through the operative channel, the string grasped and IUD pulled out of the uterine cavity with no complications. A uterine sound was advanced through the external and internal os until it reached the fundus of the uterus, the depth was 8 cm. The sound was then withdrawn. The IUD was loaded in a sterile manner and advanced into position. The string was visualized and cut to 3 cm. Tenaculum site hemostatic using cautery and Monsel's solution. All instruments removed from vagina. Patient tolerated the procedure well. NO complications were noted. The patient tolerated the procedure well and was transferred to the PACU in a stable condition.
[2023-06-26 15:07] VITALS: BP 111/60; PULSE 82; RESP 16; TEMP 36.2; O2SAT 99
[2023-06-26 15:14] VITALS: BP 111/70; PULSE 68; RESP 18; O2SAT 99
[2023-06-26 15:19] VITALS: BP 111/68; PULSE 64; RESP 18; O2SAT 99
[2023-06-26 15:21] VITALS: BP 109/65; PULSE 64; RESP 18; TEMP 36.2; O2SAT 99
== END 2023-06-26 15:56 | disposition home or self-care (01) ==
PROVIDERS: PCP Internal Medicine; Visit Provider Obstetrics & Gynecology
PROC: 0UJD8ZZ Inspection of Uterus and Cervix, Via Natural or Artificial Opening Endoscopic (ICD-10-PCS; CPT 58555; principal; 2023-06-26 14:00)
DX: T83.32XA Displacement of intrauterine contraceptive device, initial encounter (principal); Y76.8 Miscellaneous obstetric and gynecological devices associated with adverse incidents, not elsewhere classified; Y92.9 Unspecified place or not applicable
CPT/HCPCS: 58562; 58300; 81025; J1100; J1885; J2405; J2704; J3010; J7298

== ENCOUNTER → 2023-06-26 12:04 | Outpatient (BNV) | payer OTHER, SELFPAY | PROVIDERS: PCP Internal Medicine; Visit Provider Obstetrics & Gynecology | DX: T83.32XA Displacement of intrauterine contraceptive device, initial encounter (principal); Z30.430 Encounter for insertion of intrauterine contraceptive device | CPT/HCPCS: 58300; 58562 ==

== ENCOUNTER 2023-07-31 10:50 | Outpatient (AMB) | payer OTHER, SELFPAY ==
--- NOTE | 2023-07-31 11:10 | A.OFFVIS_ITS ---
Vital Signs 07/31/23 11:17 Height 5 ft 3 in Weight 173 lb BMI 30.6 Intake Visit Reasons: post op Lathe Hand Required: No Information Interpreted: non-clinical & clinical Accompanied by: Self / Same As Patient Allergies shellfish derived Allergy (Severe, Verified 07/31/23 11:19) Angioedema Is last menstrual period known: Yes HPI Comments Details: The patient is presenting post hysteroscopic IUD removal and Mirena IUD and reinsertion, no complaints minimal vaginal bleeding no feverishness chills or abdominal pain. REPLACED BY [facility] Medical History Patient denies medical problems Family History Mother Hypertension Breast cancer Maternal Grandmother Breast cancer Social History Alcohol intake: never Patient Tobacco Use Status: Never used Tobacco Second Hand Smoke Exposure: No Review of Systems Const All systems reviewed & are unremarkable except as noted in HPI and below Physical Exam Vital Signs: BMI result Body Mass Index 30.6 General: Yes no CVA tenderness External Female Exam: normal external appearance and normal appearance of the urethra Speculum Exam - Vagina: normal appearance of the vagina, normal palpation, no lesions and no masses Speculum Exam - Cervix: normal appearance of the cervix, normal palpation, no lesions, no masses, nontender and Other cervical findings present (IUD string in place) Bimanual exam- vagina & uterus: normal bimanual exam, normal palpation, uterine size normal, normal palpation, uterine shape normal, No Cervical tenderness present and non-tender Bimanual Exam- Adnexa, other: normal adnexae Back/Spine/Pelvis Back: no CVA tenderness Assessment & Plan Assessment & Plan (1) IUD check up: Code(s): Z30.431 - Encounter for routine checking of intrauterine contraceptive device Category: Medical Plan: UPT done in the office was negative. Discussed with the patient the intraoperative finding, IUD removed and Mirena IUD inserted, in addition to the finding on physical exam, IUD string in place, the patient was reassured. Instructions given to patient to call in case of temperature above 100.4, severe cramping/pelvic pain, abnormal discharge or abnormal uterine bleeding or if she misses her menstrual cycle. Otherwise follow-up at her annual exam appointment. All questions answered, the patient verbalized understanding. Coding Level of Care Code Est Pt Level 3 (30391) Diagnoses IUD check up Z30.093
[2023-07-31 11:17] VITALS: BMI 30.6
== END 2023-07-31 12:25 | disposition home or self-care (01) ==
LOC: HO.HWS 10:50
PROVIDERS: PCP Internal Medicine; Visit Provider Obstetrics & Gynecology
DX: Z32.02 Encounter for pregnancy test, result negative (principal); Z30.431 Encounter for routine checking of intrauterine contraceptive device
CPT/HCPCS: 99213

== ENCOUNTER → 2023-07-31 10:50 | Outpatient (BNVA) | payer OTHER, SELFPAY | PROVIDERS: PCP Internal Medicine; Visit Provider Obstetrics & Gynecology | DX: Z30.431 Encounter for routine checking of intrauterine contraceptive device (principal) | CPT/HCPCS: 81025; 99212 ==

== ENCOUNTER 2024-02-06 10:04 | Outpatient (AMB) | payer OTHER, SELFPAY ==
--- NOTE | 2024-02-06 10:07 | MHC.OFFVIS ---
Vital Signs 02/06/24 10:08 Height 5 ft 3 in Weight 177 lb BMI 31.4 BP 125/75 Blood Pressure Location Rt brachial Position Sitting Pulse 91 Intake Visit Reasons: abscess of the back Intake Note: Patient is seen in office for evaluation of an abscess of the back. Pt c/o: reports she completed antibiotics with no relief. PCP:01/11/24 Storage Architect Required: No Accompanied by: Self / Same As Patient Allergies shellfish derived Allergy (Severe, Verified 02/06/24 10:17) Angioedema Medication List - Last Reconciled 02/06/24 by Clem Moreno MD levonorgestrel (Mirena) intrauterine HPI Comments Details: 33-year-old female patient presenting with a 4 to five-month history of an infection located between the buttocks. She reports a hard lump with occasional discharge which occasionally is bloody in color. She denies any previous surgery in this location. She denies any fever or chills. She was recently treated with antibiotics but feels this did not change her symptoms. FORMERLY [facility], [facility] Medical History Patient denies medical problems Family History Mother Hypertension Breast cancer Maternal Grandmother Breast cancer Social History Alcohol intake: never Patient Tobacco Use Status: Never used Tobacco Second Hand Smoke Exposure: No Review of Systems Const All systems reviewed & are unremarkable except as noted in HPI and below Physical Exam Vital Signs: Last Vital Signs Pulse 91 02/06/24 10:08 BP 125/75 02/06/24 10:08 BMI result Body Mass Index 31.4 Const General: no acute distress Nutritional Appearance: well nourished Orientation/consciousness: patient oriented x3 Limitations: no limitations Resp Effort & Inspection: normal respiratory effort, no audible wheezes, no cough and no respiratory distress GI Inspection: Yes normal to inspection Palpation (GI): Soft to palpation Back/Spine/Pelvis Other: Pilonidal cyst abscess located in the left gluteal wall, fluctuant to palpation. A small draining punctum noted in the inferior portion. Entire cyst measures approximately 2 x 1 cm. Neuro General: patient oriented x3 Extrem General: Yes normal to inspection Office Procedures Incision and Drainage Details: Preoperative diagnosis: Pilonidal cyst abscess Postoperative diagnosis: Same Procedure: Incision and drainage pilonidal cyst abscess Surgeon: Clem Moreno MD Special Education Curriculum Specialist: None Anesthesia: Lidocaine 1% with epinephrine Indications for procedure: Painful swollen pilonidal cyst Operative findings: Pilonidal cyst abscess Specimen: None Estimated blood loss: Less than 2 mL Complications: None Procedure details: Patient was brought to the procedure room and placed in a prone position. The site of surgery was confirmed by the patient. After assuring informed consent the skin was prepped with Betadine in the intergluteal cleft and draped in a sterile fashion. Local anesthesia was then infiltrated around the cyst and central punctum. An 11 blade was then used to incise the cyst. This was further opened using a Q-tip. Wounds were then irrigated with saline solution and packed with a 2 x 2 gauze. Sterile dressings were then applied. The patient tolerated the procedure well. She was discharged in stable condition. She will return in 1 week for wound check. Assessment & Plan Assessment & Plan (1) Pilonidal cyst with abscess: Code(s): L05.01 - Pilonidal cyst with abscess Category: Medical Plan 33-year-old female patient presenting with a pilonidal cyst abscess with chronic discharge. This was incised and drained today a moderate size purulence collection. The abscess was then packed covered with dry sterile dressings. She was instructed on local wound care including daily showers and dressing changes. She should follow up in 1 week for wound check. Coding Level of Care Code New Pt Level 4 (50474) Diagnoses Pilonidal cyst with abscess L05.01
[2024-02-06 10:08] VITALS: BP 125/75; PULSE 91; BMI 31.4
== END 2024-02-06 10:30 | disposition home or self-care (01) ==
PROVIDERS: PCP Internal Medicine; Visit Provider Surgery
DX: L05.01 Pilonidal cyst with abscess (principal)
CPT/HCPCS: 99204

== ENCOUNTER → 2024-02-06 10:04 | Outpatient (BNVA) | payer OTHER, SELFPAY | PROVIDERS: PCP Internal Medicine; Visit Provider Surgery | DX: L05.01 Pilonidal cyst with abscess (principal) | CPT/HCPCS: 10080; 99202 ==

== ENCOUNTER 2024-02-13 15:14 | Outpatient (AMB) | payer OTHER, SELFPAY ==
[2024-02-13 15:15] VITALS: BMI 31.4
--- NOTE | 2024-02-13 15:15 | A.OFFVIS_ITS ---
Vital Signs 02/13/24 15:15 Height 5 ft 3 in Weight 177 lb 0.005 oz BMI 31.4 Intake Visit Reasons: s/p I&D pilonidal cyst Intake Note: Patient is seen in office for one week follow up visit, post Incision and drainage pilonidal cyst abscess. Pt c/o: reports no complaints at this time. Process Improvement Manager Required: No Accompanied by: Self / Same As Patient Allergies shellfish derived Allergy (Severe, Verified 02/13/24 15:20) Angioedema Medication List - Last Reconciled 02/15/24 by Clem Moreno MD levonorgestrel (Mirena) intrauterine HPI Comments Details: 33-year-old female patient presenting with a 4 to five-month history of an infection located between the buttocks. She reports a hard lump with occasional discharge which occasionally is bloody in color. She denies any previous surgery in this location. She was recently treated with antibiotics but feels this did not change her symptoms. She was evaluated 1 week ago and determined to require incision and drainage for a pilonidal cyst abscess. She tolerated this procedure well and now reports an improvement in her pain and swelling. She still feels some swelling but generally is much improved. She denies any fever or chills. [facility] Medical History Patient denies medical problems Surgical History History of incision and drainage (~02/06/24) Family History Mother Hypertension Breast cancer Maternal Grandmother Breast cancer Social History Alcohol intake: never Patient Tobacco Use Status: Never used Tobacco Second Hand Smoke Exposure: No Review of Systems Const All systems reviewed & are unremarkable except as noted in HPI and below Physical Exam Vital Signs: BMI result Body Mass Index 31.4 Const General: no acute distress Resp Effort & Inspection: normal respiratory effort Back/Spine/Pelvis Other: Minimal inflammation remaining in the intergluteal cleft. The previous incision and drainage site is now healed with no discharge or fluctuance identified. No tenderness to palpation. Assessment & Plan Assessment & Plan (1) Pilonidal cyst with abscess: Code(s): L05.01 - Pilonidal cyst with abscess Category: Medical Plan Patient returns for a follow-up examination after incision and drainage of a pilonidal cyst. Her wounds are clean and intact without any further infection. She was encouraged to call should any infection return. She will follow up as needed. Coding Level of Care Code Global (82180) Diagnoses Pilonidal cyst with abscess L05.01
== END 2024-02-13 15:36 | disposition home or self-care (01) ==
PROVIDERS: PCP Internal Medicine; Visit Provider Surgery
DX: L05.01 Pilonidal cyst with abscess (principal)
CPT/HCPCS: 99024

== ENCOUNTER → 2024-02-13 15:14 | Outpatient (BNVA) | payer OTHER, SELFPAY | PROVIDERS: PCP Internal Medicine; Visit Provider Surgery | DX: Z09 Encounter for follow-up examination after completed treatment for conditions other than malignant neoplasm (principal); Z87.2 Personal history of diseases of the skin and subcutaneous tissue; Z98.890 Other specified postprocedural states | CPT/HCPCS: 99212 ==

== ENCOUNTER 2024-02-25 09:24 | Emergency (ER) | payer OTHER, SELFPAY ==
[2024-02-25 09:30] VITALS: BP 120/92; PULSE 95; RESP 18; TEMP 37.1; O2SAT 99; BMI 31.3
[2024-02-25 10:36] LABS: MANUAL DIFF FLAG NO
[2024-02-25 10:40] LABS: Basophils Absolute Auto 0.1 X10*3/uL (0.0-0.2); Basophils Percent Auto 0.8 % (0-2); Eosinophils Absolute Auto 0.5 X10*3/uL (0.0-0.4); Eosinophils Percent Auto 6.4 % (0-4); Hematocrit 39.9 % (37.0-47.0); Hemoglobin 13.9 g/dl (12.0-16.0); Imm Gran Abs Auto 0.05 X10*3/uL (0.00-0.03); Imm Gran Pct Auto 0.7 % (0.0-0.4); Lymphocytes Absolute Auto 1.4 X10*3/uL (1.2-4.9); Lymphocytes Percent Auto 18.5 % (20-40); Mean Corpuscular HGB Conc 34.8 g/dl (31.0-35.0); Mean Corpuscular Hemoglobin 31.8 pg (27.0-33.0); Mean Corpuscular Volume 91.3 fL (80.0-98.0); Mean Platelet Volume 9.9 fL (9.4-12.3); Monocytes Absolute Auto 0.4 X10*3/uL (0.1-1.2); Monocytes Percent Auto 5.4 % (2-11); Neutrophils Absolute Auto 5.2 x10*3/uL (2.0-8.3); Neutrophils Percent Auto 68.2 % (45-73); Platelet Count 243 X10*3/uL (160-400); Red Blood Count 4.37 X10*6/uL (4.20-5.50); Red Cell Distribution Width 11.9 % (11.0-16.0); White Blood Count 7.6 X10*3/uL (4.8-10.8)
[2024-02-25 10:58] LABS: Alanine Aminotransferase 26 U/L (0-31); Albumin Level 4.5 g/dL (3.5-5.0); Alkaline Phosphatase 62 U/L (39-117); Anion Gap 12 (12-20); Aspartate Amino Transferase 25 U/L (5-31); Bilirubin Total 0.7 mg/dL (0.0-1.0); Blood Urea Nitrogen 14 mg/dL (9-16); Calcium 8.9 mg/dL (8.4-10.2); Carbon Dioxide 25 mmol/L (22-29); Chloride 107 mmol/L (96-108); Creatinine Clr Calc Pharmacy 121.6; Estimated Glomerular Filt Rate > 60; Glucose Random 79 mg/dL (60-115); Potassium 4.4 mmol/L (3.3-5.1); Sodium 140 mmol/L (135-145); Total Protein 8.5 g/dL (6.5-8.0)
--- NOTE | 2024-02-25 11:27 | ED.GENADULT ---
HPI - General Adult General Chief complaint: GI Bleed Stated complaint: rectal bleeding Time Seen by Provider: 02/25/24 11:26 Source: patient, RN notes reviewed and old records reviewed Mode of arrival: ambulatory Limitations: no limitations History of Present Illness ED Provider: Nola MANLEY narrative: Patient is a 33-year-old female presenting to the emergency department with complaint of bright red rectal bleeding since yesterday associated with bowel movements. States has had similar episodes in the past 1 or 2 times. Denies dizziness, lightheadedness, syncope. Denies rectal pain. Recently had I&D of pilonidal abscess but feels area is beginning to swell again with some mild discomfort. Denies fevers. MD complaint: rectal bleeding Onset (ago): day(s) Treatments prior to arrival: none Related Data Home Medications ?Medication ?Instructions ?Recorded ?Confirmed levonorgestrel 21 mcg/24 hr (up to intrauterine 07/31/23 02/15/24 8 years) 52 mg intrauterine device (Mirena) Previous Rx's ?Medication ?Instructions ?Recorded cephalexin 500 mg capsule 500 mg PO QID #28 caps 02/25/24 polyethylene glycol 3350 17 17 g PO DAILY #119 grams 02/25/24 gram/dose oral powder (Miralax) Allergies Allergy/AdvReac Type Severity Reaction Status Date / Time shellfish derived Allergy Severe Angioedema Verified 02/25/24 09:31 Review of Systems Review of Systems: As per HPI. Yes all other systems are reviewed and are negative Constitutional: Constitutional: Reports as per HPI PMF Past Medical History Medical History Patient denies medical problems Surgical History History of incision and drainage (~02/06/24) Family History Family History Mother Hypertension Breast cancer Maternal Grandmother Breast cancer Social History Social History Alcohol intake: never Patient Tobacco Use Status: Never used Tobacco Second Hand Smoke Exposure: No Advance Directives: No Advance Directives Information Provided: No Physical Exam ED Vital Signs: Vital Signs - 24 hr 02/25/24 09:30 Temperature 98.7 F Pulse Rate 95 Respiratory Rate 18 Blood Pressure 120/92 H Pulse Oximetry 99 Oxygen Delivery Method Room Air BMI result Body Mass Index 31.3 Vital signs have been reviewed and appear to be correct. Blood pressure normal. Heart rate normal. Respiratory rate normal. Temperature normal. Oxygen saturation normal. Const General: cooperative, healthy appearing and no acute distress Orientation/consciousness: oriented to person, oriented to place, oriented to time and patient oriented x3 Limitations: no limitations HENMT Head: Yes normocephalic and Yes atraumatic Ears: external ears normal General nose exam: Normal external nose present Face and sinus: Yes face symmetric Mouth: oropharynx normal and moist mucous membranes Throat: Yes uvula midline Eyes Pupils: Equal, round and reactive pupils present Neck Neck: Yes normal visual inspection and Yes supple Resp Effort & Inspection: normal respiratory effort and able to speak in complete sentences Auscultation: clear to auscultation bilaterally Cardio Rate: regular rate Rhythm: regular rhythm Heart sounds: S1 normal heart sound present and S2 normal heart sound present GI Other: Exam chaperoned by RICHARD Sears Palpation (GI): Soft to palpation and nontender Auscultation: normoactive bowel sounds Rectal Exam - Female: normal sphincter tone, External hemorrhoid(s) present, No Anal fissure(s) present and other (2cm diameter area of induration and erythema just left of cleft ) General: Yes no CVA tenderness Back/Spine/Pelvis Back: no CVA tenderness Skin General skin exam: elasticity normal and turgor normal Neuro General: oriented to person, oriented to place, oriented to time, patient oriented x3, moves all extremities, no focal motor deficits and CN's II-XI intact bilaterally Cranial nerves: Yes Equal, round and reactive pupils present Cognition (Neuro): normal cognition Extrem General: Yes full ROM, Yes no pedal edema and Yes no calf tenderness Psych Mental Status: mental status grossly normal Affect: normal affect Thought process: Normal thought process present Medical Decision Making Medical Decision Making MDM Narrative: Patient is a 33-year-old female presenting to the emergency department with complaint of bright red rectal bleeding since yesterday associated with bowel movements. On exam patient is awake, A+Ox3, VS WNL, afebrile, normal neurological exam without focal deficits, physical exam findings as above. Given reported symptoms and physical exam findings, initial differential includes but is not limited to hemorrhoid, thrombosed hemorrhoid, pilonidal cyst, pilonidal abscess. Less likely GI bleed. Labs notable for no anemia. Physical exam notable for nonthrombosed external hemorrhoid as well as pilonidal abscess. Abscess indurated, no fluctuance, will defer I&D at this time but will treat with keflex. Will also send prescription for Miralax. Patient has follow up with surgeon on the . Will also refer to GI for any ongoing bleeding. Return precautions discussed. Patient verbalized understanding of and agreement with plan. Differential Diagnosis Differential Diagnoses: The differential diagnosis associated with the presentation includes As per [facility] Lab Data [facility] Lab Attestation statement: I reviewed the patient's lab results. As per [facility] 02/25/24 10:32 02/25/24 10:32 Labs: Lab Results 02/25/24 Range/Units 10:32 WBC 7.6 (4.8-10.8) X10*3/uL RBC 4.37 (4.20-5.50) X10*6/uL Hgb 13.9 (12.0-16.0) g/dl Hct 39.9 (37.0-47.0) % MCV 91.3 (80.0-98.0) fL MCH 31.8 (27.0-33.0) pg MCHC 34.8 (31.0-35.0) g/dl RDW 11.9 (11.0-16.0) % Plt Count 243 (160-400) X10*3/uL MPV 9.9 (9.4-12.3) fL Immature Gran % (Auto) 0.7 H (0.0-0.4) % Neut % (Auto) 68.2 (45-73) % Lymph % (Auto) 18.5 L (20-40) % [place] % (Auto) 5.4 (2-11) % Eos % (Auto) 6.4 H (0-4) % Baso % (Auto) 0.8 (0-2) % Lymph # (Auto) 1.4 (1.2-4.9) X10*3/uL [place] # (Auto) 0.4 (0.1-1.2) X10*3/uL Eos # (Auto) 0.5 H (0.0-0.4) X10*3/uL Baso # (Auto) 0.1 (0.0-0.2) X10*3/uL Abs Immat Gran (auto) 0.05 H (0.00-0.03) X10*3/uL Absolute Neuts (auto) 5.2 (2.0-8.3) x10*3/uL Absolute Nucleated RBC 0.000 (0.0-0.012) X10*3/uL Nucleated RBC % (auto) 0.0 (0.0-0.2) /100WBC Sodium 140 (135-145) mmol/L Potassium 4.4 (3.3-5.1) mmol/L Chloride 107 (96-108) mmol/L Carbon Dioxide 25 (22-29) mmol/L Anion Gap 12 (12-20) BUN 14 (9-16) mg/dL Creatinine 0.66 (0.5-1.4) mg/dL Estim Creat Clear Calc 121.6 Estimated GFR > 60 Random Glucose 79 (60-115) mg/dL Calcium 8.9 (8.4-10.2) mg/dL Total Bilirubin 0.7 (0.0-1.0) mg/dL AST 25 (5-31) U/L ALT 26 (0-31) U/L Alkaline Phosphatase 62 (39-117) U/L Total Protein 8.5 H (6.5-8.0) g/dL Albumin 4.5 (3.5-5.0) g/dL External Record Review External record reviewed: Inpatient record, Office record and Outpatient record Prescription Management I considered prescription management with: Antibiotic and Other Discharge Plan Discharge Clinical Impression: External hemorrhoid, Pilonidal abscess Patient Disposition: Home, Self-Care Instructions: Hemorrhoids (DC), Pilonidal Cyst (ED), Abscess (ED), Sitz Bath (DC), Abscess Follow-up (ED), Pilonidal Cyst Excision (DC) Additional Instructions: You were evaluated in the emergency department today for rectal bleeding which is likely due to hemorrhoids. You are being prescribed Miralax to help your bowel movements. If your symptoms persist, follow up with the [employer] manufacturing consultant. You are being treated with antibiotics for your pilonidal abscess. Keep your follow up appointment with your surgeon. Return to the emergency department if you develop worsening bleeding, fevers, chills, body aches, lightheadedness, or any other new or concerning symptoms. Prescriptions: New cephalexin 500 mg capsule 500 mg PO QID Qty: 28 0RF polyethylene glycol 3350 [Miralax] 17 gram/dose powder 17 g PO DAILY Qty: 119 0RF No Action Mirena 21 mcg/24 hours (8 yrs) 52 mg intrauterine device intrauterine Referrals: [facility] [place] [facility] [Provider Group] Print Language: Italian
[2024-02-25 13:08] VITALS: BP 120/92; PULSE 95; RESP 18; TEMP 37.1; O2SAT 99
== END 2024-02-25 13:12 | disposition home or self-care (01) ==
PROVIDERS: Emergency Provider Emergency Medicine; PCP Internal Medicine
DX: L05.91 Pilonidal cyst without abscess (principal); K64.4 Residual hemorrhoidal skin tags; Z79.899 Other long term (current) drug therapy
CPT/HCPCS: 36415; 80053; 85025; 99282; 99283

== ENCOUNTER 2024-03-21 15:36 | Outpatient (AMB) | payer OTHER, SELFPAY ==
--- OUTSIDE RECORDS SUMMARY | 2024-03-21 15:38 | XMS_ITS | Encounter Summary ---
Author Organization [facility] Address [address] [place] [address] Phone Care Team Providers Care Associate Civil Engineer Name Role Phone Mai Denton MD Primary Care Provider Unava ilable Encounter Details Date Type Department Care Team (Late st Contact Info) Description 09/22/2016 Conversion Encounter [facility] - [address] [address] Social History Tobacco Use Types Packs/Day Years Used Date Smoking Tobacco: Never Assessed Comments Unknown Sex and Gender Information Value Date Recorded Sex Assigned at Not on file Legal Sex Female 4:21 PM EDT Gender Identity Not on file Sexual Orientation Not on file documented as of this encounter Plan of Treatment Not on file documented as of this encounter Visit Diagnoses Not on filedocumented in this encounter Care Teams Associate Civil Engineer Relationship Specialty Start Date End Date Mai Denton MD PCP - General 09/16/16 documented as of this encounter
--- OUTSIDE RECORDS SUMMARY | 2024-03-21 15:38 | XMS_ITS | Clinical Summary ---
Author Organization [facility] Address [address] [place] [id number] Phone Care Team Providers Care Media Center Assistant Name Role Phone Mai Denton MD Primary Care Provider Unajackie ilable Immunizations Immunization Administration Dates Next Due DTP 08/11/1995, 4,03/06/1992,1991,06/06/1991 Hep B, ped/adol 08/11/1995,03/07/1995,12/22/1994 Hib (PRP-T) 03/06/1992 IPV 08/06/1991,06/06/1991 MMR 08/11/1995,03/06/1992 OPV 08/11/1995,03/06/1992 Td (adult) (MBL), 2 Lf tetan us toxoid, PF, adsorbed 06/30/2003 Varicella 08/27/1998 Family History Relation Name Status Comments Brother Alive Brother: Asthma Father Alive Father: Alive a nd well Mother Alive Mother: Alive a nd well Sister Alive Sister: Alive a nd well, Asthma Social History Tobacco Use Types Packs/Day Years Used Date Smoking Tobacco: Never Assessed Comments Unknown Sex and Gender Information Value Date Recorded Sex Assigned at Not on file Legal Sex Female 4:21 PM EDT Gender Identity Not on file Sexual Orientation Not on file Plan of Treatment Health Maintenance Due Date Last Done Comments Varicella Vaccines (2 of 2 - 2-dose childhood series) 11/19/1998 08/27/1998 DTaP,Tdap,and Td Vaccines (6 - Tdap) 07/01/2003 06/30/2003, 08/11/1995, 09/26/1993, Additional history exists Influenza Vaccines (#1) 2023 COVID-19 Vaccine ( season) 2023 HIB Vaccines Completed 03/06/1992 Hepatitis B Vaccines Completed 08/11/1995, 03/07/1995, 12/22/1994 IPV Vaccines Completed 08/11/1995, 02/07, 08/06/1991, Additional history exists MMR Vaccines Completed 08/11/1995, 03/06/1992 HPV Vaccines Aged Out No longer eligi ble based on patient's age to complete this topic Hepatitis A Vaccines Aged Out No long er eligible based on patient's age to complete this topic Men B Vaccine Aged Out No longer elig ible based on patient's age to complete this topic Meningococcal Vaccine Aged Out No leland alvarez eligible based on patient's age to complete this topic Pneumococcal Vaccine Aged Out No long er eligible based on patient's age to complete this topic Care Teams Media Center Assistant Relationship Specialty Start Date End Date Mai Denton MD PCP - General 09/16/16
--- NOTE | 2024-03-21 16:08 | A.OFFVIS_ITS ---
Vital Signs 3 03/21/24 16:10 Height 5 ft 3 in Weight 176 lb 5.917 oz BMI 31.2 BP 120/82 Blood Pressure Location Lt brachial Position Sitting Intake Visit Reasons: one month follow-up s/p I&D pilonidal cyst Intake Note: Patient is seen in office for one month follow up visit, post pilonidal cyst. Pt c/o: continued discharge, sometimes bloody or clear liquid, painful, lumps is still present, not on antbx Pattern Cutter Required: No Grades 1 Through 6 Teacher: Grades 1 Through 6 Teacher Present Accompanied by: Self / Same As Patient Allergies shellfish derived Allergy (Severe, Verified 03/21/24 16:10) Angioedema HPI Comments Details: 33-year-old female patient presenting with a 4 to five-month history of an infection located between the buttocks. She reports a hard lump with occasional discharge which occasionally is bloody in color. She denies any previous surgery in this location. She was recently treated with antibiotics but feels this did not change her symptoms. She previously underwent incision and drainage and returns today for a one-month follow-up examination. She continues to note pain and swelling in the area of the pilonidal cyst abscess and occasionally will have some clear discharge from the site. Although she does feel much improved from the time of the incision and drainage, she still is having significant symptoms at the site. [facility] Medical History Patient denies medical problems Surgical History History of incision and drainage (~02/06/24) Family History Mother Hypertension Breast cancer Maternal Grandmother Breast cancer Social History Alcohol intake: never Patient Tobacco Use Status: Never used Tobacco Second Hand Smoke Exposure: No Review of Systems Const All systems reviewed & are unremarkable except as noted in HPI and below Physical Exam Vital Signs: Last Vital Signs BP 120/82 03/21/24 16:10 BMI result Body Mass Index 31.2 Const General: no acute distress Nutritional Appearance: well nourished Orientation/consciousness: patient oriented x3 Limitations: no limitations Resp Effort & Inspection: normal respiratory effort, no audible wheezes, no cough and no respiratory distress GI Inspection: Yes normal to inspection Back/Spine/Pelvis Other: Chronically inflamed area in the left intergluteal cleft consistent with a chronically inflamed pilonidal cyst. Site is mildly tender but not fluctuant to palpation. Back/spine/pelvis image: 2 1. Site of chronically inflamed pilonidal cyst, area measuring 2 x 3 cm. Neuro General: patient oriented x3 Extrem General: Yes no clubbing, cyanosis or edema Assessment & Plan Assessment & Plan (1) Pilonidal cyst with abscess: Code(s): L05.01 - Pilonidal cyst with abscess Category: Medical Plan 33-year-old female patient presenting with a chronically inflamed pilonidal cyst status post incision and drainage. She continues to have symptoms from the site with no evidence of ongoing healing. I recommended a pilonidal cystectomy and after review of the procedure, risks, and alternatives, she consents to the surgery. This will be scheduled as a short-stay surgery at her earliest convenience. Coding Level of Care Code Est Pt Level 4 (99951) Diagnoses Pilonidal cyst with abscess L05.01
[2024-03-21 16:10] VITALS: BP 120/82; BMI 31.2
== END 2024-03-21 16:32 | disposition home or self-care (01) ==
LOC: HO.HGS 15:36
PROVIDERS: PCP Internal Medicine; Visit Provider Surgery
DX: L05.01 Pilonidal cyst with abscess (principal)
CPT/HCPCS: 99214

== ENCOUNTER → 2024-03-21 15:36 | Outpatient (BNVA) | payer OTHER, SELFPAY | PROVIDERS: PCP Internal Medicine; Visit Provider Surgery | DX: L05.01 Pilonidal cyst with abscess (principal) | CPT/HCPCS: 99212 ==

== ENCOUNTER 2024-03-27 08:23 | Day surgery (SDC) | payer OTHER, SELFPAY ==
--- OUTSIDE RECORDS SUMMARY | 2024-03-26 15:56 | XMS_ITS | Encounter Summary ---
Author Organization [facility] Address [address] [place] [address] Phone Care Team Providers Care Floor Plan Adjuster Name Role Phone Mai Denton MD Primary Care Provider Unava ilable Encounter Details Date Type Department Care Team (Late st Contact Info) Description 09/22/2016 Conversion Encounter [facility] - [address] [address] Social History Tobacco Use Types Packs/Day Years [...] on filedocumented in this encounter Care Teams Floor Plan Adjuster Relationship Specialty Start Date End Date Mai Denton MD PCP - General 09/16/16 documented as of this encounter
--- OUTSIDE RECORDS SUMMARY | 2024-03-26 15:56 | XMS_ITS | Clinical Summary ---
Author Organization [facility] Address [address] [place] [id number] Phone Care Team Providers Care Steward/Stewardess Dining Room Name Role Phone Mai Denton MD Primary Care Provider Dorina ilable Immunizations Immunization Administration Dates Next Due [...] age to complete this topic Care Teams Steward/Stewardess Dining Room Relationship Specialty Start Date End Date Mai Denton MD PCP - General 09/16/16
[2024-03-27] VITALS (8 sets, daily range): BP systolic 101–121; BP diastolic 61–79; PULSE 63–82; RESP 16–18; TEMP 36.1–36.6; O2SAT 100; BMI 34.7
--- NOTE | 2024-03-27 08:54 | HO.ANESPROP2 ---
HPI - Anesthesia Eval Consult details Narrative: pilonidal cyst PMFSH Active Problems Active Problems: All Active Problems Pilonidal cyst with abscess (Acute) IUD check up (Acute) IUD strings lost (Acute) Screen for STD (sexually transmitted disease) (Acute) Well woman exam (Acute) Family planning (Acute) Varicose veins of right lower extremity with inflammation (Acute) Past Medical History Medical History Patient denies medical problems Family History Family History Mother Hypertension Breast cancer Maternal Grandmother Breast cancer Family history of problems with anesthesia: No Surgical History Surgical History History of incision and drainage (~02/06/24) History of Problems with Anesthesia: No (Never had anesthesia) Social History Social History Alcohol intake: never Patient Tobacco Use Status: Never used Tobacco Second Hand Smoke Exposure: No Advance Directives: No Advance Directives Information Provided: Yes Meds Allergies Allergy/AdvReac Type Severity Reaction Status Date / Time shellfish derived Allergy Severe Angioedema Verified 03/21/24 16:10 Active Medications: Current Medications Lactated Ringer's (Lr) 1,000 mls @ 100 mls/hr IVCONT .Q10H NEL Home Medications ?Medication ?Instructions ?Recorded ?Confirmed ?Last Taken ?Type levonorgestrel 21 mcg/24 hr (up to intrauterine 07/31/23 02/15/24 Unknown History 8 years) 52 mg intrauterine device (Mirena) Exam Airway Mallampati Class: II TM Dist: >3cm Neck ROM: Full Heart: rrr Lungs: cta Assessment and Plan Assessment Anesthesia Assessment: Anesthesia Plan Discussed Final Anesthetic Review Family History of Problems with Anesthesia: No History of Problems with Anesthesia: No (Never had anesthesia) NPO: Yes ASA Class: II Final Preanesthetic Review: No Changes in Pt Med Stat, Meds/Allgs Chart Reviewed, Consent Obtained/Reviewed and Anes Risks/Benef Reviewed Patient Risk: Low Procedure Risk: Low Anesthetic Plan Anesthetic Plan: GA and MAC: Disposition: Standard PACU
[2024-03-27 09:45] LABS: UPreg QC Valid YES; Urine Pregnancy NEGATIVE (NEGATIVE)
--- NOTE | 2024-03-27 09:45 | MHC.SHP ---
Pre-Procedural Eval Section A - 24 Hr Update-Section A only Date of Service: 03/27/24 The patient is an INPATIENT: No Changes since office visit: Yes Patient answered all questions; No Cold of Flu in the past 2 weeks, No New Medical Problems and No Changes in Medication The patient has been examined within 24 hours of the surgical procedure. The History & Physical has been completed within 30 days and I have reviewed it.: Yes Section B - Complete if H&P > 30 days Chief Complaint: Pilonidal cyst with abscess Allergies: Allergies Allergy/AdvReac Type Severity Reaction Status Date / Time shellfish derived Allergy Severe Angioedema Verified 03/27/24 09:40 Plan Diagnosis/Plan: Unchanged I have reviewed the history and physical and performed a pertinent physical examination on my patient. No changes have occurred unless specified. Time Spent With Patient Time: Total time managing care of this patient today ____ minutes.
[2024-03-27] MEDS: Lactated Ringers 1,000 ML 100 ML IVCONT (09:56)
--- NOTE | 2024-03-27 11:03 | W.PM.OPN ---
Operative Note Operative Note Date of Service: 03/27/24 Narrative: Preoperative diagnosis: Pilonidal cyst abscess Postoperative diagnosis: Same Procedure: Pilonidal cystectomy Surgeon: Clem Moreno MD [employer] Assembly Machine Tender: SAIDA Bridges Anesthesia: MAC plus local Indications for procedure: 33-year-old female presenting with multiple episodes of pilonidal cyst abscess infection presenting today for pilonidal cystectomy Operative findings: Area of chronic inflammation in the left intergluteal fold. No abscess identified. Specimen: Pilonidal cyst Estimated blood loss: 10 mL Complications: None Procedure details: Patient was brought to the OR and placed in a prone position. After administering sedation, the patient's intergluteal fold was prepped with Betadine and draped in a sterile fashion. A surgical time-out was called the consent confirmed. Patient received preoperative antibiotics and Venodyne boots were in place. Local anesthesia was infiltrated circumferentially. An elliptical incision was then created with electrocautery and carried out through subcutaneous tissue and around the area of inflammation. Pilonidal cyst was then excised completely and sent to pathology for further examination. Wounds were then checked for hemostasis using electrocautery. Wounds were then irrigated with saline solution and suctioned dry. Deep subcutaneous tissue and dermis were then reapproximated using interrupted 3-0 Polysorb sutures. Skin was closed using interrupted 3-0 nylon sutures in a mattress formation. Sterile dressings consisting of 4 x 4 gauze, ABD pad and paper tape were then applied. The patient tolerated the procedure well. Sponge, instrument, needle counts reported as correct. The patient was transferred to PACU in stable condition.
[2024-03-27] MEDS: fentaNYL citrate/PF 100 MCG/2 ML VIAL 25 MCG IVPUSH (11:10)
== END 2024-03-27 12:26 | disposition home or self-care (01) ==
PROVIDERS: PCP Internal Medicine; Visit Provider Surgery
PROC: (CPT 11771; principal; 2024-03-27 10:00)
DX: L05.91 Pilonidal cyst without abscess (principal); Z98.890 Other specified postprocedural states
CPT/HCPCS: 11771; 81025; 88304; J0131; J0690; J1100; J2003; J2405; J2704; J2795; J3010

== ENCOUNTER → 2024-03-27 08:23 | Outpatient (BNV) | payer OTHER, SELFPAY | PROVIDERS: PCP Internal Medicine; Visit Provider Surgery | DX: L05.01 Pilonidal cyst with abscess (principal) | CPT/HCPCS: 11770 ==

== ENCOUNTER 2024-04-09 10:59 | Outpatient (AMB) | payer OTHER, SELFPAY ==
--- NOTE | 2024-04-09 11:01 | A.OFFVIS_ITS ---
Vital Signs 04/09/24 11:06 Height 5 ft 1 in Weight 183 lb 13.848 oz BMI 34.7 BP 110/60 Blood Pressure Location Lt brachial Position Sitting Intake Visit Reasons: S/P pilonidal cystectomy Intake Note: Patient is seen in office for post op assessment post Excision Pilonidal Cyst. Pt c/o: admits to minimal discharge bloody/yellow color, changing pad x2 per day, area is itchy rash , denies pain or other concerns surgery:03/27/24 Bilingual Social Worker Required: No Tele Tech: Tele Tech Present Accompanied by: Self / Same As Patient Allergies shellfish derived Allergy (Severe, Verified 04/09/24 11:05) Angioedema HPI Comments Details: Patient returns for postop check after pilonidal cystectomy. Since her surgery she developed flu it was quite sick for a week. She feels much improved today but does have some itchiness and discharge noted from the incision area. [facility] Medical History Patient denies medical problems Surgical History History of excision of pilonidal cyst (03/27/24) History of incision and drainage (~02/06/24) Family History Mother Hypertension Breast cancer Maternal Grandmother Breast cancer Social History Are you a primary med care manager to a significant other at home: No Do you presently have visiting nurse or other home services: No Alcohol intake: never Comment: counts correct Patient Tobacco Use Status: Never used Tobacco Second Hand Smoke Exposure: No Physical Exam Vital Signs: Last Vital Signs BP 110/60 04/09/24 11:06 BMI result Body Mass Index 34.7 Const General: comfortable Nutritional Appearance: well nourished Orientation/consciousness: patient oriented x3 Resp Effort & Inspection: normal respiratory effort Back/Spine/Pelvis Other: Upper portion of the incision is well healed with intact sutures however the lower portion closer to the anal opening has as the sutures have pulled through. All sutures removed and dry sterile dressings applied. Neuro General: patient oriented x3 Assessment & Plan Assessment & Plan (1) Pilonidal cyst with abscess: Code(s): L05.01 - Pilonidal cyst with abscess Category: Medical Plan Patient returns for postop visit after pilonidal cystectomy. Her wounds are mostly healed but a small portion has in the lower portion of the wound. I recommended warm soaks to the area with dry sterile dressings. She should return in approximately 2 weeks for follow-up examination. Coding Level of Care Code Global (29870) Diagnoses Pilonidal cyst with abscess L05.01
[2024-04-09 11:06] VITALS: BP 110/60; BMI 34.7
== END 2024-04-09 11:17 | disposition home or self-care (01) ==
PROVIDERS: PCP Internal Medicine; Visit Provider Surgery
DX: L05.01 Pilonidal cyst with abscess (principal)
CPT/HCPCS: 99024

== ENCOUNTER → 2024-04-09 10:59 | Outpatient (BNVA) | payer OTHER, SELFPAY | PROVIDERS: PCP Internal Medicine; Visit Provider Surgery | DX: Z48.817 Encounter for surgical aftercare following surgery on the skin and subcutaneous tissue (principal); Z98.890 Other specified postprocedural states | CPT/HCPCS: 99212 ==

== ENCOUNTER 2024-04-30 12:59 | Outpatient (AMB) | payer OTHER, SELFPAY ==
--- NOTE | 2024-04-30 13:03 | MHC.OFFVIS ---
Vital Signs 04/30/24 13:06 Height 5 ft 1 in Weight 187 lb 6.287 oz BMI 35.4 BP 129/75 Blood Pressure Location Lt brachial Position Sitting Pulse 88 Intake Visit Reasons: 2 wks post pilonidal cystectomy Intake Note: Patient is seen in office for 2 weeks follow up visit, post Excision Pilonidal Cyst. Pt c/o: continued discharge, sometimes bloody or yellowish Welder Setter Electron Beam Machine Required: No Java Integration Developer: Java Integration Developer Present Accompanied by: Self / Same As Patient Allergies shellfish derived Allergy (Severe, Verified 04/30/24 13:10) Angioedema HPI Comments Details: Patient returns following pilonidal cystectomy on 03/27/2024. Overall she feels improved with no further pain. She does have occasional bloody discharge from the incision. [facility] Medical History Patient denies medical problems Surgical History History of excision of pilonidal cyst (03/27/24) History of incision and drainage (~02/06/24) Family History Mother Hypertension Breast cancer Maternal Grandmother Breast cancer Social History Are you a primary resident care supervisor to a significant other at home: No Do you presently have visiting nurse or other home services: No Alcohol intake: never Comment: counts correct Patient Tobacco Use Status: Never used Tobacco Second Hand Smoke Exposure: No Physical Exam Vital Signs: Last Vital Signs Pulse 88 04/30/24 13:06 BP 129/75 04/30/24 13:06 BMI result Body Mass Index 35.4 Const General: no acute distress Back/Spine/Pelvis Other: Only a small opening left in the bottom of the incision measuring approximately 1 cm. The remaining incision is completely healed. Good granulation is noted at the base of the wound. Extrem Other: No edema Assessment & Plan Assessment & Plan (1) Pilonidal cyst with abscess: Code(s): L05.01 - Pilonidal cyst with abscess Category: Medical Plan Patient was now much improved with only a small remaining opening left at the base of the incision. She should continue with her local wound care and return in 1 month for follow-up examination. She is welcome to call sooner for any new concerns. Coding Level of Care Code Global (21843) Diagnoses Pilonidal cyst with abscess L05.01
[2024-04-30 13:06] VITALS: BP 129/75; PULSE 88; BMI 35.4
--- OUTSIDE RECORDS SUMMARY | 2024-04-30 15:47 | XMS_ITS | Encounter Summary ---
Author Organization [facility] Address [address] [place] [address] Phone Care Team Providers Care Discharge Door Operator Name Role Phone Mai Denton MD Primary Care Provider Unava ilable Encounter Details Date Type Department Care Team (Late st Contact Info) Description 09/22/2016 Conversion Encounter [facility] - [address] [address] Social History Tobacco Use Types Packs/Day Years [...] on filedocumented in this encounter Care Teams Discharge Door Operator Relationship Specialty Start Date End Date Mai Denton MD PCP - General 09/16/16 documented as of this encounter
--- OUTSIDE RECORDS SUMMARY | 2024-04-30 15:47 | XMS_ITS | Clinical Summary ---
Author Organization [facility] Address [address] [place] [address] Phone Care Team Providers Care Fitness Floor Attendant Name Role Phone Mai Denton MD Primary [...] age to complete this topic Care Teams Fitness Floor Attendant Relationship Specialty Start Date End Date Mai Denton MD PCP - General 09/16/16
== END 2024-04-30 13:13 | disposition home or self-care (01) ==
LOC: HO.HGS 12:59
PROVIDERS: PCP Internal Medicine; Visit Provider Surgery
DX: L05.01 Pilonidal cyst with abscess (principal)
CPT/HCPCS: 99024

== ENCOUNTER → 2024-04-30 12:59 | Outpatient (BNVA) | payer OTHER, SELFPAY | PROVIDERS: PCP Internal Medicine; Visit Provider Surgery | DX: Z48.817 Encounter for surgical aftercare following surgery on the skin and subcutaneous tissue (principal); Z98.890 Other specified postprocedural states | CPT/HCPCS: 99212 ==

== ENCOUNTER 2024-05-31 09:00 | Outpatient (AMB) | payer OTHER, SELFPAY ==
--- OUTSIDE RECORDS SUMMARY | 2024-05-31 09:09 | XMS_ITS | Clinical Summary ---
Author Organization [facility] Address [address] [place] [address] Phone Care Team Providers Care Container Filler Name Role Phone Mai Denton MD Primary [...] age to complete this topic Care Teams Container Filler Relationship Specialty Start Date End Date Mai Denton MD PCP - General 09/16/16
--- OUTSIDE RECORDS SUMMARY | 2024-05-31 09:09 | XMS_ITS | Encounter Summary ---
Author Organization [facility] Address [address] [place] [address] Phone Care Team Providers Care Business Operations Manager Name Role Phone Mai Denton MD Primary Care Provider Unava ilable Encounter Details Date Type Department Care Team (Late st Contact Info) Description 09/22/2016 Conversion Encounter [facility] - [address] [address] Social History Tobacco Use Types Packs/Day Years [...] on filedocumented in this encounter Care Teams Business Operations Manager Relationship Specialty Start Date End Date Mai Denton MD PCP - General 09/16/16 documented as of this encounter
--- NOTE | 2024-05-31 09:10 | MHC.OFFVIS ---
Vital Signs 05/31/24 09:17 Height 5 ft 1 in Weight 199 lb 4 oz BMI 37.6 BP 125/61 Blood Pressure Location Lt brachial Position Sitting Pulse 86 Intake Visit Reasons: 1 mth post pilonidal cystectomy Intake Note: Patient is seen in office for one month follow up visit, post excision pilonidal cyst. Pt c/o: denies any concerns healing as expected Figure Refinisher And Repairer Required: No Field Support Engineer: Field Support Engineer Present Accompanied by: Self / Same As Patient Allergies shellfish derived Allergy (Severe, Verified 05/31/24 09:18) Angioedema HPI Comments Details: 33-year-old female s/p pilonidal cystectomy on 03/27. Patient is doing well. Denies further discharge or pain at the incision site. She has no concerns at this time [facility] Medical History Patient denies medical problems Surgical History History of excision of pilonidal cyst (03/27/24) History of incision and drainage (~02/06/24) Family History Mother Hypertension Breast cancer Maternal Grandmother Breast cancer Social History Are you a primary care team coordinator scheduler to a significant other at home: No Do you presently have visiting nurse or other home services: No Alcohol intake: never Comment: counts correct Patient Tobacco Use Status: Never used Tobacco Second Hand Smoke Exposure: No Review of Systems Const All systems reviewed & are unremarkable except as noted in HPI and below Physical Exam Vital Signs: Last Vital Signs Pulse 86 05/31/24 09:17 BP 125/61 05/31/24 09:17 BMI result Body Mass Index 37.6 Const General: healthy appearing, comfortable and no acute distress Orientation/consciousness: patient oriented x3 GI Other: Incision site at the urszula cleft is closed and healing well, no overlying erythema, discharge or edema Inspection: Yes scar Neuro General: patient oriented x3 Assessment & Plan Assessment & Plan (1) Pilonidal cyst with abscess: Code(s): L05.01 - Pilonidal cyst with abscess Category: Medical Plan 33-year-old female s/p pilonidal cystectomy on 03/27 returning to the office for follow up wound check. Patient is doing well. She is no longer having any pain, denies discharge. The incision site is healing well, there are no areas that remain open, and no signs of infection. No further follow up is necessary at this time. Patient can return at any point if concern for recurrence or new symptoms. Patient seen and examined and I agree with the above assessment and plan. Coding Level of Care Code Est Pt Level 3 (78383) Diagnoses Pilonidal cyst with abscess L05.01 Time Spent (min) 30
[2024-05-31 09:17] VITALS: BP 125/61; PULSE 86; BMI 37.6
== END 2024-05-31 09:29 | disposition home or self-care (01) ==
LOC: HO.HGS 09:01
PROVIDERS: PCP Internal Medicine; Visit Provider Surgery
DX: L05.01 Pilonidal cyst with abscess (principal)
CPT/HCPCS: 99213

== ENCOUNTER → 2024-05-31 09:00 | Outpatient (BNVA) | payer OTHER, SELFPAY | PROVIDERS: PCP Internal Medicine; Visit Provider Surgery | DX: Z48.817 Encounter for surgical aftercare following surgery on the skin and subcutaneous tissue (principal); Z87.2 Personal history of diseases of the skin and subcutaneous tissue | CPT/HCPCS: 99212 ==

== ENCOUNTER 2024-07-17 09:13 | Day surgery (SDC) | payer OTHER, SELFPAY ==
--- OUTSIDE RECORDS SUMMARY | 2024-07-09 14:53 | XMS_ITS | Clinical Summary ---
Author Organization [facility] Address [address] [place] [address] Phone Care Team Providers Care Psychotherapist Name Role Phone Mai Denton MD Primary [...] age to complete this topic Care Teams Psychotherapist Relationship Specialty Start Date End Date Mai Denton MD PCP - General 09/16/16
[2024-07-15 14:27] VITALS: BMI 38.5
--- NOTE | 2024-07-16 08:50 | HO.ANESPROP2 ---
HPI - Anesthesia Eval Consult details Narrative: 33yo F for Colonoscopy PMFSH Active Problems Active Problems: All Active Problems Pilonidal cyst with abscess (Acute) IUD check up (Acute) IUD strings lost (Acute) Screen for STD (sexually transmitted disease) (Acute) Well woman exam (Acute) Family planning (Acute) Varicose veins of right lower extremity with inflammation (Acute) Past Medical History Medical History Patient denies medical problems Family History Family History Mother Hypertension Breast cancer Maternal Grandmother Breast cancer Family history of problems with anesthesia: No Surgical History Surgical History History of excision of pilonidal cyst (03/27/24) History of incision and drainage (~02/06/24) History of Problems with Anesthesia: No (Never had anesthesia) Social History Social History Are you a primary care administrative tech to a significant other at home: No Do you presently have visiting nurse or other home services: No Alcohol intake: never Patient Tobacco Use Status: Never used Tobacco Second Hand Smoke Exposure: No Advance Directives: No Advance Directives Information Provided: Yes Patient : No Meds Allergies Allergy/AdvReac Type Severity Reaction Status Date / Time shellfish derived Allergy Severe Angioedema Verified 05/31/24 09:18 Home Medications ?Medication ?Instructions ?Recorded ?Confirmed ?Last Taken ?Type levonorgestrel 21 mcg/24 hr (up to intrauterine 07/31/23 02/15/24 Unknown History 8 years) 52 mg intrauterine device (Mirena) Exam Height,Weight and Vital Signs: Height 5 ft 1 in Weight 92.533 kg Assessment and Plan Assessment Anesthesia Assessment: Chart Reviewed Final Anesthetic Review Family History of Problems with Anesthesia: No History of Problems with Anesthesia: No (Never had anesthesia)
[2024-07-17 10:36] LABS: UPreg QC Valid YES; Urine Pregnancy NEGATIVE (NEGATIVE)
[2024-07-17 10:42] VITALS: BP 104/63; PULSE 77; RESP 16; TEMP 36.6; O2SAT 98
[2024-07-17] MEDS: Lactated Ringers 1,000 ML 100 ML IVCONT (10:48)
--- NOTE | 2024-07-17 11:34 | HO.ANESPROP2 ---
PMFSH Active Problems Active Problems: All Active Problems Pilonidal cyst with abscess (Acute) IUD check up (Acute) IUD strings lost (Acute) Screen for STD (sexually transmitted disease) (Acute) Well woman exam (Acute) Family planning (Acute) Varicose veins of right lower extremity with inflammation (Acute) Past Medical History Medical History Patient denies medical problems Functional capacity: independent ambulation Patient : No Family History Family History Mother Hypertension Breast cancer Maternal Grandmother Breast cancer Family history of problems with anesthesia: No Surgical History Surgical History History of excision of pilonidal cyst (03/27/24) History of incision and drainage (~02/06/24) History of Problems with Anesthesia: No (Never had anesthesia) Social History Social History Are you a primary healthcare management consultant to a significant other at home: No Do you presently have visiting nurse or other home services: No Alcohol intake: never Comment: counts correct Patient Tobacco Use Status: Never used Tobacco Second Hand Smoke Exposure: No Advance Directives: No Advance Directives Information Provided: Yes Meds Allergies Allergy/AdvReac Type Severity Reaction Status Date / Time shellfish derived Allergy Severe Angioedema Verified 05/31/24 09:18 Active Medications: Current Medications Lactated Ringer's (Lr) 1,000 mls @ 100 mls/hr IVCONT .Q10H NEL Last Admin: 07/17/24 10:48 Dose: 100 mls/hr Sodium Biphosphate/Sodium Phosphate (Sodium Phosphate,Baxter-Dibasic 133 Ml Enema) 133 ml TX ONCE PRN PRN Reason: Poor Colonoscopy Prep Results Home Medications ?Medication ?Instructions ?Recorded ?Confirmed ?Last Taken ?Type levonorgestrel 21 mcg/24 hr (up to intrauterine 07/31/23 02/15/24 Unknown History 8 years) 52 mg intrauterine device (Mirena) Exam Height,Weight and Vital Signs: Height 5 ft 1 in Weight 92.533 kg Last Vital Signs Temp 97.8 F 07/17/24 10:42 Pulse 77 07/17/24 10:42 Resp 16 07/17/24 10:42 BP 104/63 07/17/24 10:42 Pulse Ox 98 07/17/24 10:42 O2 Del Method Room Air 07/17/24 10:42 Pertinent Lab Results Pertinent Lab Results: Laboratory Tests 07/17/24 10:30 Urine Test NEGATIVE Airway Mallampati Class: II TM Dist: >3cm Neck ROM: Full Heart: RRR Lungs: CTA Assessment and Plan Assessment Anesthesia Assessment: Anesthesia Plan Discussed Final Anesthetic Review Family History of Problems with Anesthesia: No History of Problems with Anesthesia: No (Never had anesthesia) NPO: Yes ASA Class: II Final Preanesthetic Review: Meds/Allgs Chart Reviewed, Consent Obtained/Reviewed and Anes Risks/Benef Reviewed Patient Risk: Low Procedure Risk: Low Anesthetic Plan Anesthetic Plan: MAC: Disposition: Standard PACU
[2024-07-17 12:05] VITALS: BP 98/53; PULSE 86; RESP 16; TEMP 36.3; O2SAT 100
--- NOTE | 2024-07-17 12:09 | PM.OP ---
Brief Operative Note Date of Service: 07/17/24 Pre-op diagnosis: Rectal bleeding Post-op diagnosis: other (Internal hemorrhoids) Procedure: Colonoscopy to the cecum and TI Surgeon: Malcom Stearns MD Anesthesia: MAC Was an Utility Service Worker used for this Procedure?: No Estimated blood loss (mL): 0 Pathology: none sent Condition: stable Disposition: PACU
[2024-07-17 12:20] VITALS: BP 110/70; PULSE 70; RESP 16; O2SAT 100
--- NOTE | 2024-07-17 12:20 | OP_ITS ---
DATE OF SERVICE: 07/17/2024 SURGEON: Malcom Stearns MD INDICATIONS: The patient presents for evaluation of intermittent hematochezia. Full consent has been obtained from her for this, including risks of bleeding and perforation. PREOPERATIVE DIAGNOSIS: Hematochezia. POSTOPERATIVE DIAGNOSIS: PROCEDURE PERFORMED: Colonoscopy to the cecum and terminal ileum. ESTIMATED BLOOD LOSS: COMPLICATIONS: ANESTHESIA: Monitored anesthesia care. ASSISTANTS: SPECIMENS: POSTOPERATIVE DIAGNOSES: Hematochezia, internal hemorrhoids. DESCRIPTION OF PROCEDURE: The patient was placed in the left lateral decubitus position. The digital rectal exam revealed no abnormalities. The Olympus video pediatric colonoscope was entered into the rectum, advanced easily to the cecum. Once in the cecum, I did identify normal-appearing cecal pouch with appendiceal orifice and a normal-appearing ileocecal valve. The terminal ileum was cannulated and appeared normal. Scope withdrawn back in the colon. The entire cecum and ileocecal valve appeared normal. The scope was slowly withdrawn assessing all mucosal surfaces carefully. Preparation was excellent. I did not visualize any sign of polyps, colitis, nor angiodysplasia. There was no blood in the colon. In the rectum, scope was retroflexed visualizing small internal hemorrhoids, but no other pathology. The rectal mucosa appeared normal. The scope was straightened and withdrawn from the patient. She tolerated the procedure well and was returned to recovery area in stable condition. IMPRESSION: Internal hemorrhoids, otherwise normal colonoscopy. PLAN: At this point, the patient will be observed. She can use [id number] Preparation-H or Anusol suppositories as needed for any further rectal bleeding. If the rectal bleeding persists, then she may need to see a surgeon regarding any hemorrhoid surgery, but at this point, the hemorrhoids do not seem particularly significant and her symptoms do not seem overly problematic at this time. She will see me on a p.r.n. basis. This has been discussed with her mother. MD BLANCA Moody/YULIANA / [phone]
[2024-07-17 12:35] VITALS: BP 116/60; PULSE 70; RESP 18; TEMP 36.1; O2SAT 100
== END 2024-07-17 13:27 | disposition home or self-care (01) ==
PROVIDERS: Nurse Practitioner; PCP Internal Medicine; Visit Provider Internal Medicine
PROC: 0DJD8ZZ Inspection of Lower Intestinal Tract, Via Natural or Artificial Opening Endoscopic (ICD-10-PCS; CPT 45378; principal; 2024-07-17 10:30)
DX: K62.5 Hemorrhage of anus and rectum (principal); K64.8 Other hemorrhoids; Z87.2 Personal history of diseases of the skin and subcutaneous tissue; Z98.890 Other specified postprocedural states
CPT/HCPCS: 45378; 81025; J2003; J2704

== ENCOUNTER 2024-10-03 12:12 | Outpatient (REF) | payer OTHER, SELFPAY ==
--- OUTSIDE RECORDS SUMMARY | 2024-07-17 06:30 | XMS_ITS ---
Author Organization [facility] Address [address] [place] [address] Care Team Providers Care Petroleum Transport Driver Name Role Phone Genevieve Prieto Primary Care Provider Unavailab Malcom Quezada [phone] REASON FOR VISIT rectal bleeding Encounters Encounter Location Date Provider Diagnosis [facility] [place] Outpatient [address] [place], [place] [id number] 07/17/2024 Malcom Stearns Black stools K92.1 and Other hemorrhoids K64.8 Assessments Encounter Date Diagnosis (ICD Code) Assessment Notes Treatment Notes Treatment Clinical Notes Section Notes 07/17/2024 Black stools (ICD-10 - K92.1) 07/17/2024 Other hemorrhoids (ICD-10 - K64.8) Plan Of Treatment No Information Progress Notes * KIKE ROJASB:1990 (34 yo F)Acc No.[id number]:07/17/2024 COLON WITH MAC Patient: BETH OLSON Provider: Derrick Stearns MD :1990 A ge:33 Y S ex:Female Date:07/17/2024 Address:[address] [place] [address] Pcp:Genevieve Prieto Subjective: * Chief Complaints: * 1 . Rectal bleeding. * Medical History: Objective: * Vitals: Assessment: * Assessment: 1. B lack stools - K92.1 (Primary) 2 . O ther hemorrhoids - K64.8 ? Plan: * Treatment: * Procedure Codes: 4 5378 DIAGNOSTIC COLONOSCOPY * * The named appointment provid er may or may not be the originator of this progress note, and it is not deemed complete until electronically signed by the appointment provider. Sign off status: Pending * Provider: Derrick Stearns MD Date: 0 07/17/2024 Generated for Maranda bledsoe/Sara/Gary on: 0 10/03/2024 01:10 PM EDT
--- OUTSIDE RECORDS SUMMARY | 2024-10-03 13:10 | XMS_ITS | Clinical Summary ---
Author Organization [facility] Address [address] [place] [address] Phone Care Team Providers Care Outreach Associate Name Role Phone Mai Denton MD Primary Care Provider Unava ilable Immunizations Immunization Administration Dates Next Due [...] 07/01/2003 06/30/2003, 08/11/1995, 09/26/1993, Additional history exists HPV Vaccines (1 - 3-dose SCDM series) 2017 COVID-19 Vaccine ( season) 2023 Influenza Vaccines (#1) 2024 HIB Vaccines Completed 03/06/1992 Hepatitis B Vaccines Completed 08/11/1995, 03/07/1995, 12/22/1994 IPV Vaccines Completed 08/11/1995, 02/07, 08/06/1991, Additional history exists MMR Vaccines Completed 08/11/1995, 03/06/1992 Hepatitis A Vaccines Aged Out No long [...] age to complete this topic Care Teams Outreach Associate Relationship Specialty Start Date End Date Mai Denton MD PCP - General 09/16/16
--- OUTSIDE RECORDS SUMMARY | 2024-10-03 13:10 | XMS_ITS | Encounter Summary ---
Author Organization [facility] Address [address] [place] [address] Phone Care Team Providers Care Coating Manager Name Role Phone Mai Denton MD Primary Care Provider Unava ilable Encounter Details Date Type Department Care Team (Late st Contact Info) Description 09/22/2016 Conversion Encounter [facility] - [address] [address] Social History Tobacco Use Types Packs/Day Years [...] on filedocumented in this encounter Care Teams Coating Manager Relationship Specialty Start Date End Date Mai Denton MD PCP - General 09/16/16 documented as of this encounter
--- OUTSIDE RECORDS SUMMARY | 2024-10-03 13:10 | XMS_ITS | Patient Health Record ---
Author Organization [facility] Address [address] [place] [address] Care Team Providers Care Log Rafter Name Role Phone PatrickGenevieve rushing Primary Care Provider Unavailab Malcom Quezada Unavailable [phone] Results Component Value Reference Range Notes Ur Preg Test Reviewed date:07/17/2024 06:40:28 PM Interpretation: Performing Lab:[facility], [address] [place] [phone] Notes/Report: Urine NEGATIVE NEGATIVE This test was developed to detect early . False negative results may occur after the 5th - 7th week of when using this test method. If clinically indicated, consider a serum hCG. Reason For Referral No Information Medications Medication SIG (Take, Route, Frequency, Duration) Notes Start Date End Date Status MiraLax (colon prep) 17 GM/SCOOP 1 238Gm bottle mixed with Gatorade or Crystal Light orally begin at 5:00 p.m. the day before the procedure for 1 days 07/01/2024 Active Dulcolax (colon prep) 5 MG take 2 tablet s at 3:00 p.m and 7:00p.m. Orally two tablets twice a day for one day for 1 days 07/01/2024 Active Immunizations Vaccine Route Administration Date Status Comme nts Influenza Unknown 06/28/2024 Refused Social History Tobacco Use: Social History Observation Description Date Details (start date - stop date) Never Smoker NA - NA Tobacco Control (Standard) Question Answer Notes Tobacco use: Nonsmoker AUDIT-C (Standard) Question Answer Notes Did you have a drink containing alcohol in the p ast year? No Points 0 Interpretation Negative Section Notes: Nonsmoker; no sig alcohol Vital Signs Temperature 98.7 degrees Fahrenheit 06/28/2024 Blood pressure diastolic 01 mm Hg 06/28/2024 Height 61 in 06/28/2024 Blood pressure systolic 001 mm Hg 06/28/2024 Weight 204.2 lbs 06/28/2024 BMI 38.58 kg/m2 06/28/2024 Procedures Procedure Date Ordered Date Performed Result Body Sit e COLONOSCOPY 06/28/2024 N/A Encounters Encounter Location Date Provider Diagnosis [facility] Outpatient [address], [place] [phone] 07/17/2024 Malcom Stearns Black stools K92.1 and Other hemorrhoids K64.8 [facility] [address] [place] [phone] 06/28/2024 Malcom Stearns Rectal bleed K62.5 [facility] [address] [place] [phone] 06/28/2024 Malcom Stearns Assessments Encounter Date Diagnosis (ICD Code) Assessment Notes Treatment Notes Treatment Clinical Notes Section Notes 07/17/2024 Other hemorrhoids (ICD-10 - K64.8) 07/17/2024 Black stools (ICD-10 - K92.1) 06/28/2024 Rectal bleed (ICD-10 - K62.5) Overall, Beth appears quite well. We did review that her symptoms seem most consistent with that of some hemorrhoidal bleeding. Given the fact that she is not having any pain or burning may suggest internal hemorrhoids as opposed to the external hemorrhoids that was seen during her ER visit. Given her young age and no family history of colorectal cancer or polyps, I would think any significant colonic pathology such as polyps or neoplasm would be unlikely. However, given the fact that this has now been ongoing since last year and she really does not describe any type of rectal pain or constipation, I advised her that I think would be reasonable that she undergo a colonoscopy to definitively exclude any significant pathology such as polyps that would need to be removed. We did review the rationale for this in regard to colorectal cancer prevention and/or early detection. The procedure will be done with monitored anesthesia care. Full consent has been obtained for this, including risks of bleeding and perforation. I did advise her to contact me prior to the procedure if she has any increasing bleeding or other problems or questions I can be of assistance with. Beth was comfortable with this plan. Thank you again for allowing me to participate in Iliaricardobijal's care. I shall continue to keep you advised of her progress. Plan Of Treatment Pending Test Test Name Order Date COLONOSCOPY 06/28/2024 Insurance Providers Payer Name Payer Address Payer Phone Subscriber Number Group Number Insured Name Patient Relationship to Insured Coverage Start Date Coverage End Date [facility] [address] [address] [place], [place] [id number] BETH DICKEY Self - patient is the insured MEDICAID OF [facility] [address] [place] [address] [id number] BETH DICKEY Self - patient is the insured Medical (General) History Medical History History ICD Code Denies [place],DM,CVA,Lung disease,renal dise ase Surgical History Surgery Date(Month/Year) Pilonidal cyst excision-Dr. Moreno 202 5
[2024-10-03 13:42] LABS: Alanine Aminotransferase 33 U/L (0-31); Albumin Level 4.3 g/dL (3.5-5.0); Alkaline Phosphatase 65 U/L (39-117); Anion Gap 11 (12-20); Aspartate Amino Transferase 27 U/L (5-31); Blood Urea Nitrogen 11 mg/dL (9-16); Calcium 9.2 mg/dL (8.4-10.2); Carbon Dioxide 25 mmol/L (22-29); Chloride 106 mmol/L (96-108); Estimated Glomerular Filt Rate > 60; Potassium 3.5 mmol/L (3.3-5.1); Sodium 138 mmol/L (135-145); Total Protein 7.3 g/dL (6.5-8.0)
[2024-10-03 13:58] LABS: Thyroid Stimulating Hormone 1.28 uIU/mL (0.32-4.0)
[2024-10-06 12:05] LABS: TSpotTB Invalid (Negative)
== END 2024-10-03 12:13 | disposition home or self-care (01) ==
LOC: HO.LAB 12:12
PROVIDERS: PCP Internal Medicine; Visit Provider Internal Medicine
DX: Z11.1 Encounter for screening for respiratory tuberculosis (principal); I10 Essential (primary) hypertension; R63.5 Abnormal weight gain; Z68.38 Body mass index [BMI] 38.0-38.9, adult
CPT/HCPCS: 36415; 80053; 84443; 86481

== ENCOUNTER 2024-10-15 14:20 | Outpatient (AMB) | payer OTHER, SELFPAY ==
--- OUTSIDE RECORDS SUMMARY | 2024-07-17 06:30 | XMS_ITS ---
Author Organization [facility] Address [address] [place] [address] Care Team Providers Care Clam Shovel Operator Name Role Phone Genevieve Prieto Primary Care Provider Unavailab Malcom Quezada [phone] REASON FOR VISIT rectal bleeding Encounters Encounter Location Date Provider Diagnosis [facility] Outpatient [address] [place], [place] [phone] 07/17/2024 Malcom Stearns Black stools K92.1 and Other hemorrhoids K64.8 Assessments Encounter Date Diagnosis (ICD Code) Assessment Notes Treatment Notes Treatment Clinical Notes Section Notes 07/17/2024 Black stools (ICD-10 - K92.1) 07/17/2024 Other hemorrhoids (ICD-10 - K64.8) Plan Of Treatment No Information Progress Notes * KIKE ROJASB:1990 (34 yo F)Acc No.[id number]:07/17/2024 COLON WITH MAC Patient: BETH OLSON Provider: Derrick Stearns MD :1990 A ge:33 Y S ex:Female Date:07/17/2024 Address:[address] [place] [address] Pcp:Genevieve Prieto Subjective: * Chief Complaints: * [...] 07/17/2024 Generated for Maranda bledsoe/Sara/Gary on: 0 10/15/2024 04:55 PM EDT
--- NOTE | 2024-10-15 14:41 | MHC.OFFVIS ---
Vital Signs 10/15/24 14:45 Height 5 ft 3 in Weight 178 lb BMI 31.5 Intake Visit Reasons: IUD issues Property Administrator Required: No Information Interpreted: non-clinical & clinical Automation Consultant: Automation Consultant Present (Manisha PFEIFFER) Accompanied by: Self / Same As Patient Allergies shellfish derived Allergy (Severe, Verified 10/15/24 14:45) Angioedema HPI Comments Details: Presenting complaining of vaginal/pelvic discomfort from IUD according to patient that started a week ago after intercourse no vaginal bleeding , no vaginal discharge, no urinary symptoms or no other associated symptoms PFSH Medical History Patient denies medical problems Surgical History History of excision of pilonidal cyst (03/27/24) History of incision and drainage (~02/06/24) Family History Mother Hypertension Breast cancer Maternal Grandmother Breast cancer Social History Are you a primary childcare director to a significant other at home: No Do you presently have visiting nurse or other home services: No Alcohol intake: never Patient Tobacco Use Status: Never used Tobacco Second Hand Smoke Exposure: No Review of Systems Const All systems reviewed & are unremarkable except as noted in HPI and below Physical Exam Vital Signs: BMI result Body Mass Index 31.5 General: Yes no CVA tenderness External Female Exam: normal external appearance and normal appearance of the urethra Speculum Exam - Vagina: normal appearance of the vagina, normal palpation, no lesions and no masses Speculum Exam - Cervix: normal appearance of the cervix, normal palpation, no lesions, no masses, nontender and Other cervical findings present (IUD string seen in place) Bimanual exam- vagina & uterus: normal bimanual exam, normal palpation, uterine size normal, normal palpation, uterine shape normal, No Cervical tenderness present and non-tender Bimanual Exam- Adnexa, other: normal adnexae Back/Spine/Pelvis Back: no CVA tenderness Results AMB Test Urine AMB Test Urine Negative Last Edit by Manisha Nicole CMA on 10/15/24 14:57 Assessment & Plan Assessment & Plan (1) Pelvic pain: Code(s): R10.2 - Pelvic and perineal pain Category: Medical Plan: UPT and urine dip done in the office was negative, GC/CT taken, week ultrasound ordered. Instructions given the patient to use a backup method for control till ultrasound is done and schedule a ultrasound follow-up appointment within 2 weeks after Orders: Orders AMB HCG Urine Test Today Z32.02 - Encounter for test, result negative US pelvic and transvaginal Today R10.2 - Pelvic and perineal pain CT NG by PCR Urine Today T83.32XA - Displacement of intrauterine contraceptive device, initial encounter Coding Level of Care Code Est Pt Level 3 (02903) Diagnoses Pelvic pain R10.2
[2024-10-15 14:45] VITALS: BMI 31.5
--- OUTSIDE RECORDS SUMMARY | 2024-10-15 16:56 | XMS_ITS | Clinical Summary ---
Author Organization [facility] Address [address] [place] [phone] Phone Care Team Providers Care Manager Of Regulatory Affairs Name Role Phone Mai Denton MD Primary [...] Vaccines (1 - 3-dose SCDM series) 2017 Influenza Vaccines (#1) 2024 COVID-19 Vaccine ( season) 2024 HIB Vaccines Completed 03/06/1992 Hepatitis B [...] age to complete this topic Care Teams Manager Of Regulatory Affairs Relationship Specialty Start Date End Date Mai Denton MD PCP - General 09/16/16
--- OUTSIDE RECORDS SUMMARY | 2024-10-15 16:56 | XMS_ITS | Patient Health Record ---
Author Organization [facility] Address [address] [place] [address] Care Team Providers Care Charging Operator Name Role Phone PatrickGenevieve rushing Primary Care Provider Unavailab Malcom Quezada Unavailable [phone] Results Component Value Reference Range Notes Ur Preg Test Reviewed date:07/17/2024 06:40:28 PM Interpretation: Performing Lab:[facility], [address] [place] [phone] Notes/Report: Urine NEGATIVE NEGATIVE This test was [...] N/A Encounters Encounter Location Date Provider Diagnosis [facility] Outpatient [address] [place], [place] [phone] 07/17/2024 Malcom Stearns Black stools K92.1 and Other hemorrhoids K64.8 [facility] [address] [place] [phone] 06/28/2024 Malcom Stearns Rectal bleed K62.5 [facility] [address] [place] [phone] 06/28/2024 Malcom Stearns Assessments Encounter Date Diagnosis [...] Insured Coverage Start Date Coverage End Date [facility] [address] [address] [place], [place] [id number] BETH DICKEY Self - patient is the insured MEDICAID OF [facility] [address] [place] [address] [id number] BETH DICKEY Self - patient is the insured Medical (General) History Medical History History ICD Code Denies [place],DM,CVA,Lung disease,renal dise ase Surgical History Surgery Date(Month/Year) Pilonidal cyst excision-Dr. Moreno 202 5
--- OUTSIDE RECORDS SUMMARY | 2024-10-15 16:56 | XMS_ITS | Encounter Summary ---
Author Organization [facility] Address [address] [place] [address] Phone Care Team Providers Care Shoe Shanker Name Role Phone Mai Denton MD Primary Care Provider Unava ilable Encounter Details Date Type Department Care Team (Late st Contact Info) Description 09/22/2016 Conversion Encounter [facility] - [address] [address] Social History Tobacco Use Types Packs/Day Years [...] on filedocumented in this encounter Care Teams Shoe Shanker Relationship Specialty Start Date End Date Mai Denton MD PCP - General 09/16/16 documented as of this encounter
== END 2024-10-15 14:58 | disposition home or self-care (01) ==
LOC: HO.HWS 14:20
PROVIDERS: PCP Internal Medicine; Visit Provider Obstetrics & Gynecology
DX: R10.2 Pelvic and perineal pain (principal); Z32.02 Encounter for pregnancy test, result negative
CPT/HCPCS: 99213

== ENCOUNTER 2024-10-15 14:20 | Outpatient (REF) | payer OTHER, SELFPAY ==
[2024-10-15 17:09] LABS: CT PCR Urine NOT DETECTED (Not Detect.); NG PCR Urine NOT DETECTED (Not Detect.)
== END 2024-10-15 14:21 | disposition home or self-care (01) ==
LOC: HO.LNP 14:20
PROVIDERS: PCP Internal Medicine; Visit Provider Obstetrics & Gynecology
DX: T83.32XA Displacement of intrauterine contraceptive device, initial encounter (principal); R10.2 Pelvic and perineal pain; Z32.02 Encounter for pregnancy test, result negative
CPT/HCPCS: 81025; 87491; 87591; 99212

== ENCOUNTER 2024-10-18 08:22 | Outpatient (REF) | payer OTHER, SELFPAY ==
--- OUTSIDE RECORDS SUMMARY | 2024-07-17 06:30 | XMS_ITS ---
Author Organization [facility] Address [address] [place] [address] Care Team Providers Care Inverted Block Operator Name Role Phone Genevieve Prieto Primary Care Provider Unavailab Malcom Quezada [phone] REASON FOR VISIT rectal bleeding Encounters Encounter Location Date Provider Diagnosis [facility] Outpatient [address] [place], [place] [id number] 07/17/2024 Malcom Stearns Black stools K92.1 and Other hemorrhoids K64.8 Assessments Encounter Date Diagnosis (ICD Code) Assessment Notes Treatment Notes Treatment Clinical Notes Section Notes 07/17/2024 Black stools (ICD-10 - K92.1) 07/17/2024 Other hemorrhoids (ICD-10 - K64.8) Plan Of Treatment No Information Progress Notes * KIKE ROJASB:1990 (34 yo F)Acc No.[id number]:07/17/2024 COLON WITH MAC Patient: BETH OLSON Provider: Derrick Stearns MD :1990 A ge:33 Y S ex:Female Date:07/17/2024 Address:[address] [place] [address] Pcp:Genevieve Prieto Subjective: * Chief Complaints: * [...] 07/17/2024 Generated for Maranda bledsoe/Sara/Gary on: 0 10/18/2024 08:46 AM EDT
--- NOTE | ~2024-10-18 | US_ITS ---
EXAMINATION: US PELVIS CLINICAL INFORMATION: Pelvic and perineal pain. COMPARISON: April 17, 2023. TECHNIQUE: Ultrasound of the pelvis is performed using both transabdominal and transvaginal transducers along with Doppler. Transvaginal imaging is performed due to inadequate visualization transabdominally. FINDINGS: Uterus: The uterus is anteversion flexion and measures 9 x 5 x 6 cm. Volume: 150 cc. The double wall endometrial thickness is 7 mm. There is an intrauterine contraceptive device within the uterine cavity without extending into the endocervical canal. The endocervical canal is closed with trace of fluid. Normal morphology of the myometrium without gross uterine fibroids. Adnexa: The ovaries are identified with flow on color Doppler interrogation.. No free fluid in the cul-de-sac. Right ovary measures 3 x 3 x 3 cm. Volume: 14 cc. There is a 2.5 cm well-defined anechoic structure without flow on color Doppler interrogation or septations nor internal echoes. Left ovary measures 4 x 2 x 2 cm. Volume: 6 cc. No solid or cystic lesion. US/US pelvic and transvaginal IMPRESSION: Intrauterine contraceptive device in satisfactory position. No uterine fibroid. No ovarian torsion. 2.5 cm dominant follicle versus borderline simple cyst. Electronically signed by: Norm Harmon MD 10/18/2024 08:57 AM EDT
--- OUTSIDE RECORDS SUMMARY | 2024-10-18 08:46 | XMS_ITS | Clinical Summary ---
Author Organization [facility] Address [address] [place] [address] Phone Care Team Providers Care Cigar Packer And Shader Name Role Phone Mai Denton MD Primary [...] age to complete this topic Care Teams Cigar Packer And Shader Relationship Specialty Start Date End Date Mai Denton MD PCP - General 09/16/16
--- OUTSIDE RECORDS SUMMARY | 2024-10-18 08:46 | XMS_ITS | Encounter Summary ---
Author Organization [facility] Address [address] [place] [address] Phone Care Team Providers Care Failure Analysis Technician Name Role Phone Mai Denton MD Primary Care Provider Unava ilable Encounter Details Date Type Department Care Team (Late st Contact Info) Description 09/22/2016 Conversion Encounter [facility] - [address] [address] Social History Tobacco Use Types Packs/Day Years [...] on filedocumented in this encounter Care Teams Failure Analysis Technician Relationship Specialty Start Date End Date Mai Denton MD PCP - General 09/16/16 documented as of this encounter
--- OUTSIDE RECORDS SUMMARY | 2024-10-18 08:46 | XMS_ITS | Patient Health Record ---
Author Organization [facility] Address [address] [place] [address] Care Team Providers Care Machine Maintenance Supervisor Name Role Phone PatrickGenevieve rushing Primary Care Provider Unavailab Malcom Quezada Unavailable [phone] Results Component Value Reference Range Notes Ur Preg Test Reviewed date:07/17/2024 06:40:28 PM Interpretation: Performing Lab:[facility], [address] [place] [phone] Notes/Report: Urine NEGATIVE NEGATIVE This test was [...] N/A Encounters Encounter Location Date Provider Diagnosis [facility] Outpatient [address], [place] [phone] 07/17/2024 Malcom Stearns Black stools K92.1 and Other hemorrhoids K64.8 [facility] [address] [place] [phone] 06/28/2024 Malcom Stearns Rectal bleed K62.5 [facility] [address] [place] [phone] 06/28/2024 Malcom Stearns Assessments Encounter Date Diagnosis [...] Insured Coverage Start Date Coverage End Date [facility] [address] [address] [place], [place] [id number] BETH DICKEY Self - patient is the insured MEDICAID OF [facility] [address] [place] [address] [id number] BETH DICKEY Self - patient is the insured Medical (General) History Medical History History ICD Code Denies [place],DM,CVA,Lung disease,renal dise ase Surgical History Surgery Date(Month/Year) Pilonidal cyst excision-Dr. Moreno 202 5
== END 2024-10-18 08:23 | disposition home or self-care (01) ==
LOC: HO.HMGCX 08:22
PROVIDERS: PCP Internal Medicine; Visit Provider Obstetrics & Gynecology
DX: Z30.431 Encounter for routine checking of intrauterine contraceptive device (principal); R10.2 Pelvic and perineal pain
CPT/HCPCS: 76830; 76856

== ENCOUNTER → 2024-10-18 08:26 | Outpatient (BNV) | payer OTHER, SELFPAY | PROVIDERS: PCP Internal Medicine; Visit Provider Radiology Diagnostic Radiology | DX: R10.2 Pelvic and perineal pain (principal) | CPT/HCPCS: 76830; 76856 ==

== ENCOUNTER 2024-10-24 13:42 | Outpatient (AMB) | payer OTHER, SELFPAY ==
--- NOTE | 2024-10-24 13:43 | MHC.OFFVIS ---
Intake Visit Reasons: U/S results Allergies shellfish derived Allergy (Severe, Verified 10/15/24 14:45) Angioedema HPI Comments Details: Presenting for follow-up regarding her pelvic pain. The patient is doing well. The following workup was done so far: U CT negative. Last visit urine test was negative. Last visit urine dip was neg. Pelvic ultrasound showed the following: Uterus: The uterus is anteversion flexion and measures 9 x 5 x 6 cm. Volume: 150 cc. The double wall endometrial thickness is 7 mm. There is an intrauterine contraceptive device within the uterine cavity without extending into the endocervical canal. The endocervical canal is closed with trace of fluid. Normal morphology of the myometrium without gross uterine fibroids. Adnexa: The ovaries are identified with flow on color Doppler interrogation.. No free fluid in the cul-de-sac. Right ovary measures 3 x 3 x 3 cm. Volume: 14 cc. There is a 2.5 cm well-defined anechoic structure without flow on color Doppler interrogation or septations nor internal echoes. Left ovary measures 4 x 2 x 2 cm. Volume: 6 cc. No solid or cystic lesion. US/US pelvic and transvaginal IMPRESSION: Intrauterine contraceptive device in satisfactory position. No uterine fibroid. No ovarian torsion. 2.5 cm dominant follicle versus borderline simple cyst [facility] Medical History Patient denies medical problems Surgical History History of excision of pilonidal cyst (03/27/24) History of incision and drainage (~02/06/24) Family History Mother Hypertension Breast cancer Maternal Grandmother Breast cancer Social History Are you a primary physician locums urgent care to a significant other at home: No Do you presently have visiting nurse or other home services: No Alcohol intake: never Patient Tobacco Use Status: Never used Tobacco Second Hand Smoke Exposure: No Telehealth Telehealth Location of provider rendering services: practice address Location of patient: address on file Patient Identification confirmed using: Name, : Yes Telehealth method: video Patient verbally consented to treatment: Yes Patient verbally consented to billing insurance company: Yes Patient informed of any privacy concerns related to visit: Yes Minutes spent on Phone/Video with Pt.: 3 Assessment & Plan Assessment & Plan (1) Pelvic pain: Code(s): R10.2 - Pelvic and perineal pain Category: Medical Plan: Discussed with the patient the results of the workup done including negative chlamydia, urine dip, urine test and pelvic ultrasound. Differential diagnosis of stock mixer causes that have not be ruled out yet include but not limited to endometriosis, pelvic adhesions , or others. Recommended for the patient to see her PCP for further workup for non stock mixer causes; if the all the results are negative and the patient's pelvic pain is persistent, instructions given to patient to call back for further testing. Meanwhile, instructions were given the patient to go to emergency room or call in case of fever above 100.4, heavy vaginal bleeding, persistence or worsening of her pelvic pain. All questions answered, the patient verbalized understanding. I spent a total of 20 minutes reviewing the chart, talking to the patient via video and documenting in the medical record. Coding Level of Care Code Tele Est Pt Level 3 (85403) Diagnoses Pelvic pain R10.2
== END 2024-10-24 14:26 | disposition home or self-care (01) ==
LOC: HO.HWS 13:42
PROVIDERS: PCP Internal Medicine; Visit Provider Obstetrics & Gynecology
DX: R10.2 Pelvic and perineal pain (principal)
CPT/HCPCS: 99213

== ENCOUNTER 2025-01-01 13:11 | Emergency (ER) | payer OTHER, SELFPAY ==
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
--- NOTE | ~2025-01-01 | CT_ITS ---
EXAMINATION: CT CERVICAL SPINE WITHOUT CONTRAST CLINICAL INFORMATION: neck pain COMPARISON: None available. TECHNIQUE: CT of the cervical spine was obtained without administration of intravenous contrast. Images were reconstructed in axial, sagittal and coronal planes. This CT examination was performed using dose optimization techniques as appropriate, variously including the following: *Automated exposure control *Adjustment of mA and/or kV according to patient size (this includes techniques or standardized protocols for targeted exams where dose is matched to indication/reason for exam; i.e. extremities or head) *Use of iterative reconstruction technique FINDINGS: Alignment: Straightening of the cervical lordosis. No subluxation. Vertebrae: Vertebral bodies and posterior elements are intact. Intervertebral disc spaces: Normal height. Craniovertebral junction: Normal alignment. No fracture. Soft tissues: Prevertebral and posterior paraspinal soft tissues are unremarkable. Other findings: No apical pneumothorax. No consolidation in the upper lungs. Level by level analysis: No spinal canal or neuroforaminal stenosis in the cervical spine. CT/CT cervical spine wo IV con IMPRESSION: No acute fracture or subluxation. Electronically signed by: Bethel Bryant MD 01/01/2025 02:11 PM [facility]
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
[2025-01-01 13:25] VITALS: BP 132/89; PULSE 94; RESP 18; TEMP 36.7; O2SAT 95; BMI 39.6
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
[2025-01-01 15:09] VITALS: BP 132/89; PULSE 94; RESP 18; TEMP 36.7; O2SAT 95
--- OUTSIDE RECORDS SUMMARY | 2025-01-01 17:06 | XMS_ITS | Encounter Summary ---
Author Organization [facility] Address [address] [place] [address] Phone Care Team Providers Care Office Messenger Helper Name Role Phone Mai Denton MD Primary Care Provider Unava ilable Encounter Details Date Type Department Care Team (Late st Contact Info) Description 09/22/2016 Conversion Encounter [facility] - [address] [address] Social History Tobacco Use Types Packs/Day Years [...] on filedocumented in this encounter Care Teams Office Messenger Helper Relationship Specialty Start Date End Date Mai Denton MD PCP - General 09/16/16 documented as of this encounter
--- OUTSIDE RECORDS SUMMARY | 2025-01-01 17:06 | XMS_ITS | Clinical Summary ---
Author Organization [facility] Address [address] [place] [id number] Phone Care Team Providers Care Inside Sales Director Name Role Phone Mai Denton MD Primary [...] age to complete this topic Care Teams Inside Sales Director Relationship Specialty Start Date End Date Mai Denton MD PCP - General 09/16/16
== END 2025-01-01 15:10 | disposition home or self-care (01) ==
PROVIDERS: Emergency Provider Emergency Medicine; PCP Internal Medicine
DX: S13.4XXA Sprain of ligaments of cervical spine, initial encounter (principal); M41.9 Scoliosis, unspecified; V49.9XXA Car occupant (driver) (passenger) injured in unspecified traffic accident, initial encounter; Y93.9 Activity, unspecified; Y92.410 Unspecified street and highway as the place of occurrence of the external cause; Y99.9 Unspecified external cause status; Z91.013 Allergy to seafood
CPT/HCPCS: 70450; 72100; 72125; 96372; 99284; J1885

== ENCOUNTER → 2025-01-01 13:24 | Outpatient (BNV) | payer OTHER, SELFPAY | PROVIDERS: Emergency Provider Emergency Medicine; PCP Internal Medicine; Visit Provider Radiology Diagnostic Radiology | DX: M54.2 Cervicalgia (principal); R51.9 Headache, unspecified; V89.9XXA Person injured in unspecified vehicle accident, initial encounter; M54.50 Low back pain, unspecified; Z97.5 Presence of (intrauterine) contraceptive device | CPT/HCPCS: 70450; 72100; 72125 ==